=== PATIENT | female | born 1935 | race African-American/Black ===

== ENCOUNTER 2017-01-18 21:49 | Inpatient (IN) | payer MEDICAID, MEDICARE ==
[2017-01-18] MEDS ORDERED: VASELINE LIP THERAPY TP PRN (22:36)
[2017-01-18] MEDS ORDERED: NACL 0.9% 1000 ML 1,000 ML ONE (22:44)
[2017-01-18] MEDS ORDERED: NACL 0.9% 1000 ML 1,000 ML IV ONE ×2 (22:50→23:34)
[2017-01-18] MEDS ORDERED: ATIVAN 100 MG in NACL 0.9% 50 ML, VIAFLEX EMPTY CONTAINER 0 ML IV SCH (23:00)
--- NOTE | 2017-01-18 23:03 | Emergency Department Report ---
ED General Adult HPI - General Chief complaint: Dyspnea/Respdistress Stated complaint: SWATHI Time Seen by Provider: 01/18/17 22:36 Source: EMS Mode of arrival: Stretcher Limitations: Language Barrier, Altered Mental Status, Physical Limitation - History of Present Illness Initial comments: Patient is an 81-year-old female pmhx of GERD and HTN who presents with agonal breathing. Patient was at home when she wasn't responding to family. Patient' s O2 sat is 75% on 100% of FiO2 on CPAP. Further history is limited due to the acuity of patient's condition. - Related Data Previous Rx's Medication Instructions Recorded Last Taken Type Acetaminophen [Acetaminophen TAB] 650 mg PO Q4H PRN #60 tablet 01/03/17 Unknown Rx Clindamycin [Clindamycin CAP] 300 mg PO TID #20 capsule 01/03/17 Unknown Rx Levofloxacin [Levaquin TAB] 750 mg PO Q24HR #7 tablet 01/03/17 Unknown Rx cloNIDine [Catapres] 0.2 mg PO BID #60 tablet 01/03/17 Unknown Rx oxyCODONE /ACETAMINOPHEN [Percocet 1 tab PO Q6H PRN #30 tablet 01/03/17 Unknown Rx 5/325 mg] Allergies Allergy/AdvReac Type Severity Reaction Status Date / Time No Known Allergies Allergy Verified 07/16/15 13:15 ED Review of Systems ROS: Stated complaint: SWATHI Other details as noted in HPI Comment: Unobtainable due to pts medical conditions (due to acuity of patient' s condition.) ED Past Medical Hx - Past Medical History Hx Hypertension: Yes Hx GERD: Yes Hx Psychiatric Treatment: Yes (depression) Hx HIV: No - Surgical History Additional Surgical History: unknown - Social History Smoking Status: Unknown if ever smoked - Medications Home Medications: Home Medications Medication Instructions Recorded Confirmed Last Taken Type Acetaminophen [Acetaminophen TAB] 650 mg PO Q4H PRN #60 tablet 01/03/17 Unknown Rx Clindamycin [Clindamycin CAP] 300 mg PO TID #20 capsule 01/03/17 01/18/17 Unknown Rx Levofloxacin [Levaquin TAB] 750 mg PO Q24HR #7 tablet 01/03/17 01/18/17 Unknown Rx cloNIDine [Catapres] 0.2 mg PO BID #60 tablet 01/03/17 01/18/17 Unknown Rx oxyCODONE /ACETAMINOPHEN [Percocet 1 tab PO Q6H PRN #30 tablet 01/03/17 Unknown Rx 5/325 mg] ED Physical Exam - General Limitations: Language Barrier, Altered Mental Status, Physical Limitation General appearance: obtunded, cachectic - Head Head exam: Present: atraumatic - Respiratory Respiratory exam: Present: other (crackles ) - Cardiovascular Cardiovascular Exam: Present: tachycardia - GI/Abdominal GI/Abdominal exam: Present: soft ED Course Vital Signs 01/18/17 01/18/17 01/18/17 22:06 22:11 22:15 Temperature 97.4 F L Pulse Rate 131 H 131 H 127 H Respiratory 51 H 52 H 40 H Rate Blood Pressure 153/91 153/85 Blood Pressure 153/91 [Left] O2 Sat by Pulse 74 L 74 L 77 L Oximetry 01/18/17 01/18/17 01/18/17 22:44 22:45 23:00 Temperature Pulse Rate 132 H 130 H 94 H Respiratory 20 20 20 Rate Blood Pressure 86/65 71/50 Blood Pressure [Left] O2 Sat by Pulse 97 97 100 Oximetry 01/18/17 01/18/17 01/18/17 23:15 23:30 23:45 Temperature Pulse Rate 100 H 110 H 119 H Respiratory 20 20 20 Rate Blood Pressure 218/124 164/114 103/78 Blood Pressure [Left] O2 Sat by Pulse 100 100 100 Oximetry 01/18/17 01/19/17 23:50 00:00 Temperature Pulse Rate 122 H 119 H Respiratory 20 Rate Blood Pressure 103/78 91/69 Blood Pressure [Left] O2 Sat by Pulse 100 100 Oximetry - Intubation Time Out Performed: Yes Sedative: Etomidate Mg Given: 10 Paralytic: Rocuronium Mg Given: 60 Laryngoscope: fiberoptic video scope Size: 4 ET Tube Size: 7.5 Tube Secured Depth (cm): 24 Tube Secured Location: lips Tube Placement Confirmation: visualized tube passing t, equal breath sounds bilat, no breath sounds over epi Patient Tolerated Procedure: no complications Intubation Complications: none ED Medical Decision Making - Lab Data Result diagrams: 01/18/17 23:40 01/18/17 23:40 Lab Results 01/18/17 01/18/17 01/19/17 Range/Units 23:40 23:40 00:29 WBC 22.9 H (4.5-11.0) K/mm3 RBC 3.49 L (3.65-5.03) M/mm3 Hgb 10.4 (10.1-14.3) gm/dl Hct 32.3 (30.3-42.9) % MCV 93 (79-97) fl MCH 30 (28-32) pg MCHC 32 (30-34) % RDW 14.6 (13.2-15.2) % Plt Count 520 H (140-440) K/mm3 Seg Neutrophils % Corporate Strategist POC ABG pH 7.485 H (7.35-7.45) POC ABG pCO2 40.7 (35-45) POC ABG pO2 248 H (80-105) POC ABG HCO3 30.7 POC ABG Total CO2 32 POC ABG O2 Sat 100 POC ABG Base Excess 7 FiO2 100 % Sodium 155 H (137-145) mmol/L Potassium 2.7 L* (3.6-5.0) mmol/L Chloride 106.1 (98-107) mmol/L Carbon Dioxide 29 (22-30) mmol/L Anion Gap 23 mmol/L BUN 37 H (7-17) mg/dL Creatinine 0.8 (0.7-1.2) mg/dL Estimated GFR > 60 ml/min BUN/Creatinine Ratio 46.25 % Glucose 167 H (65-100) mg/dL Calcium 9.1 (8.4-10.2) mg/dL Troponin T 0.075 H (0.00-0.029) ng/mL - EKG Data -: EKG Interpreted by [facility] - EKG Data 01/19/17 01:18 EKG shows sinus tachycardia right atrium enlargement and LVH. Nonspecific T wave. - Radiology Data Radiology results: report reviewed Chest x-ray: Shows ET tube above the maycol - Medical Decision Making Medical diagnosis: Pneumonia Differential medical diagnosis: Sepsis, non-STEMI, hypokalemia, COPD We'll get CBC, CMP, lactic acid, blood cultures, IV antibiotics, chest x-ray, 30 mL per kilo fluid bolus, troponin, EKG Patient has respiratory failure patient will require admission to the ICU due to patient's life-threatening medical condition. Critical Care Time: Yes (40) Critical care time in (mins) excluding proc time.: 40 Critical care attestation.: If time is entered above; I have spent that time in minutes in the direct care of this critically ill patient, excluding procedure time. Critical Care Time: Critical care time spent at patient's bedside 30 minutes Critical care time spent with patient's family and 0 minutes Critical care time spent reviewing laboratory findings 5 minutes Local care times reviewing old laboratory records 5 minutes ED Disposition Clinical Impression: Respiratory failure requiring intubation, Parkinson disease, Hypokalemia Sepsis Qualifiers: Sepsis type: sepsis due to unspecified organism Qualified Code(s): A41.9 - Sepsis, unspecified organism Disposition: OP ADMIT IP TO THIS HOSP Is pt being admited?: Yes Does the pt Need Aspirin: No Condition: Stable Referrals: PRIMARY CARE, [Primary Care Provider] - 3-5 Days
[2017-01-18] MEDS: fentaNYL DRIP Premix 2,000 MCG/100 ML BAG IV SCH (23:34)
[2017-01-18 23:55] LABS: Hematocrit 32.3 % (30.3-42.9); Hemoglobin 10.4 gm/dl (10.1-14.3); Mean Corpuscular HGB Conc 32 % (30-34); Mean Corpuscular Hemoglobin 30 pg (28-32); Mean Corpuscular Volume 93 fl (79-97); Platelet Count 520 K/mm3 (140-440); Red Blood Count 3.49 M/mm3 (3.65-5.03); Red Cell Distribution Width 14.6 % (13.2-15.2)
[2017-01-18 23:57] LABS: White Blood Count 22.9 K/mm3 (4.5-11.0)
[2017-01-19] MEDS ORDERED: NACL 0.9% 1000 ML IV ONE
[2017-01-19 00:17] LABS: Anion Gap 23 mmol/L; BUN/Creatinine Ratio 46.25; Blood Urea Nitrogen 37 mg/dL (7-17); Calcium 9.1 mg/dL (8.4-10.2); Carbon Dioxide 29 mmol/L (22-30); Chloride 106.1 mmol/L (98-107); Glucose 167 mg/dL (65-100); Sodium 155 mmol/L (137-145)
[2017-01-19 00:24] LABS: Potassium 2.7 mmol/L (3.6-5.0)
[2017-01-19] MEDS ORDERED: VANCOMYCIN VIAL IV ONE (00:25)
[2017-01-19 00:37] LABS: ISTAT Base Excess 7; ISTAT HCO3 30.7; ISTAT PCO2 40.7 (35-45); ISTAT PH 7.485 (7.35-7.45); ISTAT PO2 248 (80-105); ISTAT SO2 100; ISTAT TCO2 32
[2017-01-19] MEDS: KCL 10MEQ/100ML 10 MEQ/100 ML BAG IV SCH ×3 (00:44→03:55)
[2017-01-19] MEDS ORDERED: VANCOMYCIN PHARMACY TO DOSE IV SCH ×2 (01:00→03:00)
[2017-01-19] MEDS ORDERED: ZOSYN/NS 3.375GM/50ML 3.375 GM/50 ML BAG IV ONE (01:25)
[2017-01-19] MEDS ORDERED: VANCOMYCIN/NS 1 GM/250 ML 1 GM/250 ML BAG IV ONE (02:00)
[2017-01-19 02:03] LABS: Blastocytes % (Manual) 0 %
[2017-01-19 02:04] LABS: Eosinophils % (Manual) 0 % (0.0-4.3); Total Cells Counted Percent 0
[2017-01-19 02:05] LABS: Diff Status Complete; Macrocytosis Few; Platelet Estimate Appears Increased
[2017-01-19] MEDS ORDERED: TYLENOL PO PRN (02:25)
[2017-01-19] MEDS ORDERED: TYLENOL PR PRN (02:25)
[2017-01-19] MEDS ORDERED: ZOFRAN IV PRN (02:25)
--- NOTE | 2017-01-19 02:30 | History and Physical Report ---
History of Present Illness Date of examination: 01/19/17 History of present illness: 81-year-old woman history of hypertension, GERD, depression was brought to the emergency room patient was not responding appropriately. The patient was found to have agonal respirations and was intubated. A review of systems unobtainable , unable to reach family irritable charts reviewed PAST MEDICAL HISTORY: hyperrtension, GERD, depressio PAST SURGICAL HISTORY: Unknown FAMILY HISTORY:Unknown SOCIAL HISTORY:Unknown Medications and Allergies Allergies Allergy/AdvReac Type Severity Reaction Status Date / Time No Known Allergies Allergy Verified 07/16/15 13:15 Home Medications Medication Instructions Recorded Confirmed Last Taken Type Acetaminophen [Acetaminophen TAB] 650 mg PO Q4H PRN #60 tablet 01/03/17 Unknown Rx Clindamycin [Clindamycin CAP] 300 mg PO TID #20 capsule 01/03/17 01/18/17 Unknown Rx Levofloxacin [Levaquin TAB] 750 mg PO Q24HR #7 tablet 01/03/17 01/18/17 Unknown Rx cloNIDine [Catapres] 0.2 mg PO BID #60 tablet 01/03/17 01/18/17 Unknown Rx oxyCODONE /ACETAMINOPHEN [Percocet 1 tab PO Q6H PRN #30 tablet 01/03/17 Unknown Rx 5/325 mg] Active Meds: Active Medications Hydrophilic Ointment (Vaseline Lip Therapy) 1 applic TP Q2HR PRN PRN Reason: Dry Lips Fentanyl Citrate (Fentanyl Drip Premix) 2,000 mcg in 100 mls @ 2.495 mls/hr IV TITR KEELY; 1 MCG/KG/HR PRN Reason: Protocol Last Titration: 01/19/17 01:18 Dose: 2 mcg/kg/hr, 4.99 mls/hr Lorazepam 100 mg/ Sodium Chloride/ Miscellaneous Information 100 mls @ 1 mls/ hr IV TITR KEELY; 1 MG/HR PRN Reason: Protocol Last Admin: 01/18/17 23:34 Dose: 1 mg/hr, 1 mls/hr Sodium Chloride (Nacl 0.9% 1000 Ml) 1,000 mls @ 75 mls/hr IV ONCE ONE Stop: 01/19/17 12:53 Last Admin: 01/18/17 23:34 Dose: 75 mls/hr Potassium Chloride (Kcl 10meq/100ml) 10 meq in 100 mls @ 100 mls/hr IV Q1H [facility] Stop: 01/19/17 03:59 Last Admin: 01/19/17 02:25 Dose: 100 mls/hr Piperacillin Sod/Tazobactam Sod (Zosyn/Ns 3.375gm/50ml) 3.375 gm in 50 mls @ 100 mls/hr IV Q6HR [facility] Last Admin: 01/19/17 01:00 Dose: 100 mls/hr Vancomycin HCl (Vancomycin/Ns 1 Gm/250 Ml) 1 gm in 250 mls @ 166.667 mls/hr IV ONCE ONE Stop: 01/19/17 03:29 Last Admin: 01/19/17 01:38 Dose: 166.667 mls/hr Vancomycin HCl 750 mg/ Sodium (Chloride) 257.5 mls @ 166.667 mls/hr IV Q24H [facility] Multi-Ingred Cream/Lotion/Oil/Oint (Artificial Tears Ophth Oint) 1 applic OU Q4HR PRN PRN Reason: Dry Eye(s) Vancomycin HCl (Vancomycin Pharmacy To Dose) 1 each IV PKCONSULT KEELY PRN Reason: Protocol Exam - Physical Exam Narrative exam: Gen. appearance: Patient lying in bed in no acute distress, intubated HEENT: Normocephalic/atraumatic, pupils equal round reactive to light, unable to do extraocular movement, no scleral icterus, no JVD or thyromegaly or nodule , neck is supple, mucous membrane moist, unable to examine oral cavity Heart: S1-S2, regular rate and rhythm Lungs: Clear to auscultation bilateral breathing comfortable Abdomen: Positive bowel sounds, nontender, nondistended, no organomegaly Extremities: No edema, cyanosis, clubbing Neuro:: Sedated Skin: No rash, nodules, warm dry - Constitutional Vitals: Temp Pulse Resp BP Pulse Ox 97.4 F L 99 H 18 123/74 93 01/18/17 22:11 01/19/17 01:45 01/19/17 01:45 01/19/17 01:45 01/19/17 01:45 Results - Labs CBC & Chem 7: 01/22/17 05:05 01/22/17 05:05 Labs: Abnormal lab results 01/18/17 01/18/17 01/19/17 Range/Units 23:40 23:40 00:29 WBC 22.9 H (4.5-11.0) K/mm3 RBC 3.49 L (3.65-5.03) M/mm3 Plt Count 520 H (140-440) K/mm3 Seg Neuts % (Manual) 79.0 H (40.0-70.0) % Lymphocytes % (Manual) 3.0 L (13.4-35.0) % Seg Neutrophils # Man 18.1 H (1.8-7.7) K/mm3 Lymphocytes # (Manual) 0.7 L (1.2-5.4) K/mm3 POC ABG pH 7.485 H (7.35-7.45) POC ABG pO2 248 H (80-105) Sodium 155 H (137-145) mmol/L Potassium 2.7 L* (3.6-5.0) mmol/L BUN 37 H (7-17) mg/dL Glucose 167 H (65-100) mg/dL Lactic Acid (0.7-2.0) mmol/L Troponin T 0.075 H (0.00-0.029) ng/mL 01/19/17 Range/Units 00:44 WBC (4.5-11.0) K/mm3 RBC (3.65-5.03) M/mm3 Plt Count (140-440) K/mm3 Seg Neuts % (Manual) (40.0-70.0) % Lymphocytes % (Manual) (13.4-35.0) % Seg Neutrophils # Man (1.8-7.7) K/mm3 Lymphocytes # (Manual) (1.2-5.4) K/mm3 POC ABG pH (7.35-7.45) POC ABG pO2 (80-105) Sodium (137-145) mmol/L Potassium (3.6-5.0) mmol/L BUN (7-17) mg/dL Glucose (65-100) mg/dL Lactic Acid 7.90 H* (0.7-2.0) mmol/L Troponin T (0.00-0.029) ng/mL - Imaging and Cardiology EKG: image reviewed Chest x-ray: image reviewed Assessment and Plan Assessment Acute respiratory failure Sepsis HCAP Hyponatremia Elevated cardiac enzymes Hypokalemia Plan Admit to medicine Continue sedation Start IV vancomycin, Zosyn Start IV fluid, monitor sodium level Replete potassium, check cardiac enzymes, echo Consult critical care, DVT prophylaxis Addendum The patient has become more hypoxic, status post IV fluid Increase FiO2 to 100. Spoke with son, patient is full code Blood pressures dropped to the 70s, I have obtained consent for central line Will start blevophed, hold sedation for now
[2017-01-19 02:44] LABS: Cholesterol 201 mg/dL (50-199); HDL Cholesterol 46 mg/dL (40-59); LDL Cholesterol,Direct 121 mg/dL (50-130); Triglycerides 173 mg/dL (2-149)
[2017-01-19] MEDS ORDERED: VANCOMYCIN VIAL IV SCH (03:00)
[2017-01-19] MEDS ORDERED: K-DUR PO ONE (03:35)
[2017-01-19 05:05] LABS: Bilirubin,Urine NEG (Negative); Blood,Urine NEG (Negative); Ketones,Urine NEG (Negative); Leukocyte Esterase,Urine NEG (Negative); Mucus,Urine 1+ /HPF; Nitrite,Urine NEG (Negative); Protein,Urine <15 mg/dL mg/dL (Negative); Urobilinogen,Urine < 2.0 mg/dL (<2.0)
[2017-01-19 05:34] LABS: ISTAT Base Excess 0; ISTAT HCO3 24.8; ISTAT PCO2 42.6 (35-45); ISTAT PH 7.373 (7.35-7.45); ISTAT PO2 57 (80-105); ISTAT SO2 88; ISTAT TCO2 26
--- NOTE | 2017-01-19 05:35 | Event Note ---
ED Saba. central line note Requested by hospitalist Dr. Maribel Sewell to place a central line so that vasopressors may be initiated Central line note Consent was obtained by hospitalist Location: Right femoral The site was prepped and draped in a sterile fashion Site was anesthetized with lidocaine 1% approximately 3 mL Landmarks identified and needle introduced until return of dark nonpulsatile blood Blood was obtained on first attempt Guidewire introduced using Seldinger technique and triple lumen catheter placed over guidewire There was blood return from all 3 ports Catheter was secured to patient by adhesive The patient tolerated procedure well There were no complications
[2017-01-19] MEDS ORDERED: LEVOPHED DRIP 4 MG/NS 250 ML 4 MG/250 ML BAG IV SCH (06:00)
[2017-01-19] MEDS ORDERED: ZOSYN/NS 3.375GM/50ML 3.375 GM/50 ML BAG IV SCH (06:00)
[2017-01-19] MEDS ORDERED: D5W 1,000 ML IV SCH (06:00)
[2017-01-19] MEDS: D5W 1,000 ML IV SCH ×2 (06:33→22:23)
[2017-01-19 07:03] LABS: Anion Gap 15 mmol/L; BUN/Creatinine Ratio 48.57; Blood Urea Nitrogen 34 mg/dL (7-17); Calcium 7.9 mg/dL (8.4-10.2); Carbon Dioxide 28 mmol/L (22-30); Chloride 116.6 mmol/L (98-107); Glucose 124 mg/dL (65-100); Potassium 3.5 mmol/L (3.6-5.0); Sodium 156 mmol/L (137-145)
[2017-01-19 07:16] LABS: Creatine Kinase MB 3.4 ng/mL (0.0-4.0)
--- NOTE | 2017-01-19 07:45 | XRay Report ---
Single view chest: Compared to 01/05/17. History: Difficulty breathing. Findings: Normal cardiomediastinal silhouette. Trachea is midline. Tip of the endotracheal tube is in the right mainstem bronchus just distal to the maycol. Emphysematous changes bilaterally with bilateral lower lobe infiltrates minimal growth of the right side. No evidence of pleural effusion or pneumothorax. Impression: The endotracheal tube should be withdrawn approximately 4 cm. Additional findings as detailed above.
--- NOTE | 2017-01-19 07:46 | XRay Report ---
Single view chest: Compared to 01/18/17 obtained at 10:45 PM. History: Followup of respiratory failure. Findings: No significant interval change compared to previous study. Again endotracheal tube is noted in the proximal mainstem bronchus. Should be withdrawn approximately 4 cm. Impression: Findings as detailed above.
[2017-01-19] MEDS ORDERED: ZOSYN/NS 4.5GM/100ML 4.5 GM/100 ML VIAL IV SCH (08:00)
[2017-01-19 08:12] LABS: Anion Gap 14 mmol/L; BUN/Creatinine Ratio 47.14; Blood Urea Nitrogen 33 mg/dL (7-17); Calcium 7.8 mg/dL (8.4-10.2); Carbon Dioxide 29 mmol/L (22-30); Chloride 119.5 mmol/L (98-107); Glucose 118 mg/dL (65-100); Potassium 3.5 mmol/L (3.6-5.0); Sodium 159 mmol/L (137-145)
--- NOTE | 2017-01-19 08:23 | Event Note ---
Date: 01/19/17 Patient was admitted this morning acute respiratory failure, requiring intubation, hypotension, elevated cardiac enzymes Hypernatremia, anemia.Patient awaiting ICU bed assignment Medical records reviewed, agree with the current management Patient is critically ill, with very poor prognosis with multiple medical problems, Upon evaluation; Elderly frail patient is orally intubated on ventilatory support and sedated In mild distress Vital signs reviewed Physical examination; Neck; supple no JVD or lymphadenopathy ENT; Ht tube and Dobbhoff in place Pulmonary; bilateral air entry reduced occasional coarse breath sounds present CVS; S1-S2 regular no murmur Abdomen; soft nontender bowel sounds are present no organomegaly Lower extremities; no edema feet, no calf asymmetry or calf tenderness FRAME BUILDER; intubated and sedated Psych; intubated and sedated Skin; chronic age-related changes Musculoskeletal; no deformities Assessment and plan: --Acute respiratory failure; requiring intubation Continue ventilatory support, nebulizers, pulmonary consultation, supportive care --Sepsis; probably secondary to HCAP IV antibiotics, follow cultures --Leukocytosis; secondary to sepsis --Hypokalemia; replace per protocol and monitor levels --Hypotension/septic shock; IV hydration, pressors, antibiotics, follow cultures, consider ID evaluation if needed --Hypernatremia D5W, free water flushes, closely monitor electrolytes Consisted nephrology evaluation if needed --Elevated cardiac enzymes, rule out non-ST elevation OK Serial cardiac enzymes, aspirin, no beta blockers or Navid inhibitors secondary to hypotension, cardiology evaluation if needed --DVT prophylaxis; SCDs CODE STATUS; DO NOT RESUSCITATE Patient is critically ill with poor prognosis son is aware We will discuss options of hospice and comfort care with the patient's son I answered all his questions,he requested to continue current management and DO NOT RESUSCITATE status if patient has cardiac arrest.
[2017-01-19] MEDS: LOVENOX SUB-Q SCH (09:57)
[2017-01-19 10:38] LABS: Creatine Kinase MB 3.1 ng/mL (0.0-4.0)
[2017-01-19 11:48] LABS: Anion Gap 17 mmol/L; Blood Urea Nitrogen 36 mg/dL (7-17); Calcium 7.6 mg/dL (8.4-10.2); Carbon Dioxide 27 mmol/L (22-30); Chloride 120.8 mmol/L (98-107); Glucose 119 mg/dL (65-100); Potassium 3.5 mmol/L (3.6-5.0)
[2017-01-19 12:10] LABS: Sodium 161 mmol/L (137-145)
--- NOTE | 2017-01-19 12:39 | Consultation ---
History of Present Illness Consult date: 01/19/17 Requesting physician: HAILEE ALVES Reason for consult: hypoxemia History of present illness: 81 y/o female, recently discharged from [facility] several days ago with failure to thrive and pneumonia, readmitted with change in mental status and inability to protect airway with hypoxemia. From reviewing the old chart, patient's overall clinical health has been declining over this past year but family was not ready to make the patient hospice. She is currently intubated, but now she is an AND. Medications and Allergies Allergies Allergy/AdvReac Type Severity Reaction Status Date / Time No Known Allergies Allergy Verified 07/16/15 13:15 Home Medications Medication Instructions Recorded Confirmed Last Taken Type Acetaminophen [Acetaminophen TAB] 650 mg PO Q4H PRN #60 tablet 01/03/17 Unknown Rx Clindamycin [Clindamycin CAP] 300 mg PO TID #20 capsule 01/03/17 01/18/17 Unknown Rx Levofloxacin [Levaquin TAB] 750 mg PO Q24HR #7 tablet 01/03/17 01/18/17 Unknown Rx cloNIDine [Catapres] 0.2 mg PO BID #60 tablet 01/03/17 01/18/17 Unknown Rx oxyCODONE /ACETAMINOPHEN [Percocet 1 tab PO Q6H PRN #30 tablet 01/03/17 Unknown Rx 5/325 mg] Active Meds: Active Medications Acetaminophen (Tylenol) 650 mg PO Q4H PRN PRN Reason: Pain MILD(1-3)/Fever >100.5/SALMON Acetaminophen (Tylenol) 650 mg CO Q4H PRN PRN Reason: Pain MILD(1-3)/Fever >100.5/SALMON Enoxaparin Sodium (Lovenox) 30 mg SUB-Q QDAY KEELY Last Admin: 01/19/17 09:57 Dose: 30 mg Hydrophilic Ointment (Vaseline Lip Therapy) 1 applic TP Q2HR PRN PRN Reason: Dry Lips Fentanyl Citrate (Fentanyl Drip Premix) 2,000 mcg in 100 mls @ 2.495 mls/hr IV TITR KEELY; 1 MCG/KG/HR PRN Reason: Protocol Last Titration: 01/19/17 04:46 Dose: 1 mcg/kg/hr, 2.495 mls/hr Lorazepam 100 mg/ Sodium Chloride/ Miscellaneous Information 100 mls @ 1 mls/ hr IV TITR KEELY; 1 MG/HR PRN Reason: Protocol Last Admin: 01/18/17 23:34 Dose: 1 mg/hr, 1 mls/hr Sodium Chloride (Nacl 0.9% 1000 Ml) 1,000 mls @ 75 mls/hr IV ONCE ONE Stop: 01/19/17 12:53 Last Admin: 01/18/17 23:34 Dose: 75 mls/hr Vancomycin HCl 750 mg/ Sodium (Chloride) 257.5 mls @ 166.667 mls/hr IV Q24H KEELY Norepinephrine (Levophed Drip 4 Mg/Ns 250 Ml) 4 mg in 250 mls @ 7.5 mls/hr IV TITR KEELY; 2 MCG/MIN PRN Reason: Protocol Dextrose (D5w) 1,000 mls @ 125 mls/hr IV DIRECT KEELY Last Admin: 01/19/17 06:33 Dose: 75 mls/hr Piperacillin Sod/Tazobactam Sod (Zosyn/Ns 4.5gm/100ml) 4.5 gm in 100 mls @ 200 mls/hr IV Q8HR KEELY PRN Reason: Protocol Multi-Ingred Cream/Lotion/Oil/Oint (Artificial Tears Ophth Oint) 1 applic OU Q4HR PRN PRN Reason: Dry Eye(s) Ondansetron HCl (Zofran) 4 mg IV Q8H PRN PRN Reason: N/V unrelieved by Juniorlan Vancomycin HCl (Vancomycin Pharmacy To Dose) 1 each IV PKCONSULT KEELY PRN Reason: Protocol Physical Examination Vital signs: Vital Signs Pulse Resp Pulse Ox 131 H 51 H 74 L 01/18/17 22:06 01/18/17 22:06 01/18/17 22:06 Results - Laboratory Findings CBC and BMP: 01/21/17 04:00 01/21/17 04:00 ABG POC ABG pH 7.373 (7.35-7.45) 01/19/17 04:48 POC ABG pCO2 42.6 (35-45) 01/19/17 04:48 POC ABG pO2 57 (80-105) L 01/19/17 04:48 POC ABG HCO3 24.8 01/19/17 04:48 POC ABG Total CO2 26 01/19/17 04:48 POC ABG O2 Sat 88 01/19/17 04:48 Abnormal lab findings: Abnormal Labs 01/19/17 01/19/17 01/19/17 04:48 06:32 06:32 POC ABG pO2 57 L Sodium Potassium Chloride BUN Glucose Lactic Acid Calcium CK-MB (CK-2) Rel Index 8.2 H Troponin T 0.126 H* D 01/19/17 01/19/17 01/19/17 06:32 06:32 07:41 POC ABG pO2 Sodium 156 H 159 H Potassium 3.5 L D 3.5 L Chloride 116.6 H 119.5 H BUN 34 H 33 H Glucose 124 H 118 H Lactic Acid 4.00 H* Calcium 7.9 L 7.8 L CK-MB (CK-2) Rel Index Troponin T 01/19/17 01/19/17 01/19/17 09:55 09:55 11:30 POC ABG pO2 Sodium 161 H* Potassium 3.5 L Chloride 120.8 H BUN 36 H Glucose 119 H Lactic Acid Calcium 7.6 L CK-MB (CK-2) Rel Index 7.3 H Troponin T 0.163 H* D Assessment and Plan 81 y/o female with mulitiple comorbidities admitted with acute respiratory failure and failure to thrive and NSTEMi 1. Continue vent support 2. Agree with broad spec abx therapy given patient was just discharged from the hospital earlier this month 3. Correct electrolyte imbalances 4. overall prognosis is poor, would suggest hospice which primary has already spoken to family about. Will continue to supportive care. CCT 31 minutes
[2017-01-19 12:57] LABS: Anion Gap 16 mmol/L; Blood Urea Nitrogen 34 mg/dL (7-17); Calcium 7.7 mg/dL (8.4-10.2); Carbon Dioxide 26 mmol/L (22-30); Chloride 119.4 mmol/L (98-107); Glucose 127 mg/dL (65-100); Potassium 3.4 mmol/L (3.6-5.0); Sodium 158 mmol/L (137-145)
[2017-01-19] MEDS ORDERED: KCL 20MEQ/100ML 20 MEQ/100 ML BAG IV ONE (14:30)
[2017-01-19] MEDS: ZOSYN/NS 4.5GM/100ML 4.5 GM/100 ML VIAL IV SCH (16:20)
[2017-01-19] MEDS: ARTIFICIAL TEARS OPHTH OINT OU PRN (17:17)
--- NOTE | 2017-01-19 17:19 | Consultation ---
History of Present Illness - Reason for Consult Consult date: 01/19/17 hypokalemia, other (Hypernatremia) - History of Present Illness The patient is a 81-year-old female with medical history significant for Hypertension, GERD, Depression was brought to the ER with decreased responsiveness. Patient was not able to provide any history at this time and there was no family member available at the bedside. She was recently treated at [facility] for failure to thrive and pneumonia. The patient was found to have agonal respirations and was intubated. Patient is hypotensive and Levophed was ordered. She has multiple laboratory abnormalities including leukocytosis, hypernatremia, hypokalemia, Lactic acidosis, azotemia and elevated troponin. Creatinine is 0.8. Past History Past Medical History: GERD, hypertension Medications and Allergies Allergies Allergy/AdvReac Type Severity Reaction Status Date / Time No Known Allergies Allergy Verified 07/16/15 13:15 Home Medications Medication Instructions Recorded Confirmed Last Taken Type Acetaminophen [Acetaminophen TAB] 650 mg PO Q4H PRN #60 tablet 01/03/17 Unknown Rx Clindamycin [Clindamycin CAP] 300 mg PO TID #20 capsule 01/03/17 01/18/17 Unknown Rx Levofloxacin [Levaquin TAB] 750 mg PO Q24HR #7 tablet 01/03/17 01/18/17 Unknown Rx cloNIDine [Catapres] 0.2 mg PO BID #60 tablet 01/03/17 01/18/17 Unknown Rx oxyCODONE /ACETAMINOPHEN [Percocet 1 tab PO Q6H PRN #30 tablet 01/03/17 Unknown Rx 5/325 mg] Active Meds: Active Medications Acetaminophen (Tylenol) 650 mg PO Q4H PRN PRN Reason: Pain MILD(1-3)/Fever >100.5/SALMON Acetaminophen (Tylenol) 650 mg OR Q4H PRN PRN Reason: Pain MILD(1-3)/Fever >100.5/SALMON Last Admin: 01/19/17 16:26 Dose: 650 mg Enoxaparin Sodium (Lovenox) 30 mg SUB-Q QDAY KEELY Last Admin: 01/19/17 09:57 Dose: 30 mg Hydrophilic Ointment (Vaseline Lip Therapy) 1 applic TP Q2HR PRN PRN Reason: Dry Lips Fentanyl Citrate (Fentanyl Drip Premix) 2,000 mcg in 100 mls @ 2.495 mls/hr IV TITR KEELY; 1 MCG/KG/HR PRN Reason: Protocol Last Titration: 01/19/17 12:36 Dose: 1 mcg/kg/hr, 2.495 mls/hr Lorazepam 100 mg/ Sodium Chloride/ Miscellaneous Information 100 mls @ 1 mls/ hr IV TITR KEELY; 1 MG/HR PRN Reason: Protocol Last Admin: 01/18/17 23:34 Dose: 1 mg/hr, 1 mls/hr Vancomycin HCl 750 mg/ Sodium (Chloride) 257.5 mls @ 166.667 mls/hr IV Q24H KEELY Norepinephrine (Levophed Drip 4 Mg/Ns 250 Ml) 4 mg in 250 mls @ 7.5 mls/hr IV TITR KEELY; 2 MCG/MIN PRN Reason: Protocol Dextrose (D5w) 1,000 mls @ 125 mls/hr IV DIRECT KEELY Last Admin: 01/19/17 06:33 Dose: 75 mls/hr Piperacillin Sod/Tazobactam Sod (Zosyn/Ns 4.5gm/100ml) 4.5 gm in 100 mls @ 200 mls/hr IV Q8HR KEELY PRN Reason: Protocol Last Admin: 01/19/17 16:20 Dose: 200 mls/hr Multi-Ingred Cream/Lotion/Oil/Oint (Artificial Tears Ophth Oint) 1 applic OU Q4HR PRN PRN Reason: Dry Eye(s) Ondansetron HCl (Zofran) 4 mg IV Q8H PRN PRN Reason: N/V unrelieved by Hemanth Vancomycin HCl (Vancomycin Pharmacy To Dose) 1 each IV PKCONSULT KEELY PRN Reason: Protocol Review of Systems ROS unobtainable: due to mental status Exam - Vital Signs Vital signs: Vital Signs Pulse Resp Pulse Ox 131 H 51 H 74 L 01/18/17 22:06 01/18/17 22:06 01/18/17 22:06 - General Appearance General appearance: well-developed, appears stated age, sedated on ventilator, intubated, frail EENT: ATNC, other (left cornea is hazy) Neck: Present: neck supple, trachea midline Respiratory: Other (coarse breath sounds) Heart: regular, S1S2, no murmurs Gastrointestinal: Present: normoactive bowel sounds. Absent: tenderness, distended Integumentary: no rash Neurologic: other (sedated) Musculoskeletal: Present: other (no edema) Results - Lab Results 01/18/17 23:40 01/19/17 12:05 Most recent lab results Calcium 7.7 mg/dL (8.4-10.2) L 01/19/17 12:05 Assessment and Plan - Patient Problems (1) Azotemia Current Visit: Yes Status: Acute Plan to address problem: Continue IV fluids. (2) Hypernatremia Current Visit: Yes Status: Acute Plan to address problem: Continue IV D5W. Monitor Sodium levels. (3) Hypokalemia Current Visit: Yes Status: Acute Plan to address problem: Replete K. (4) Respiratory failure requiring intubation Current Visit: Yes Status: Acute (5) Sepsis Current Visit: Yes Status: Acute Qualifiers: Sepsis type: sepsis due to unspecified organism Qualified Code(s): A41.9 - Sepsis, unspecified organism
--- NOTE | 2017-01-19 17:53 | Consultation ---
History of Present Illness Consult date: 01/19/17 Consult reason: abnormal cardiac enzymes History of present illness: The patient is an 81-year-old woman who was brought to the emergency room with altered mental status. There are multiple severe laboratory and metabolic abnormalities including severe hypernatremia with sodium 161, and severe leukocytosis with a white count of 22,000. The patient was ultimately intubated and is currently in the emergency room, unresponsive on the vent. Cardiac consultation was requested for an isolated mild rise in troponin levels. On further review, more pertinent cardiac finding is an abnormal ECG. There was sinus tachycardia, with ischemic ST depression in the lateral precordial leads. Review of her records demonstrates that a year ago, she underwent noninvasive cardiac evaluation, a myocardial perfusion stress test was normal, an echocardiogram was normal left ventricular systolic function with ejection fraction reported at 55-60%. Chest x-ray shows no edema or evidence of heart failure. Due to advanced age, frailty and multiple comorbidities, the patient is on conservative medical management, and has a DO NOT RESUSCITATE status. Past History Past Medical History: hypertension Medications and Allergies Allergies Allergy/AdvReac Type Severity Reaction Status Date / Time No Known Allergies Allergy Verified 07/16/15 13:15 Home Medications Medication Instructions Recorded Confirmed Last Taken Type Acetaminophen [Acetaminophen TAB] 650 mg PO Q4H PRN #60 tablet 01/03/17 Unknown Rx Clindamycin [Clindamycin CAP] 300 mg PO TID #20 capsule 01/03/17 01/18/17 Unknown Rx Levofloxacin [Levaquin TAB] 750 mg PO Q24HR #7 tablet 01/03/17 01/18/17 Unknown Rx cloNIDine [Catapres] 0.2 mg PO BID #60 tablet 01/03/17 01/18/17 Unknown Rx oxyCODONE /ACETAMINOPHEN [Percocet 1 tab PO Q6H PRN #30 tablet 01/03/17 Unknown Rx 5/325 mg] Active Meds: Active Medications Acetaminophen (Tylenol) 650 mg PO Q4H PRN PRN Reason: Pain MILD(1-3)/Fever >100.5/SALOMN Acetaminophen (Tylenol) 650 mg [place] Q4H PRN PRN Reason: Pain MILD(1-3)/Fever >100.5/SALMON Last Admin: 01/19/17 16:26 Dose: 650 mg Enoxaparin Sodium (Lovenox) 30 mg SUB-Q QDAY KEELY Last Admin: 01/19/17 09:57 Dose: 30 mg Hydrophilic Ointment (Vaseline Lip Therapy) 1 applic TP Q2HR PRN PRN Reason: Dry Lips Fentanyl Citrate (Fentanyl Drip Premix) 2,000 mcg in 100 mls @ 2.495 mls/hr IV TITR KEELY; 1 MCG/KG/HR PRN Reason: Protocol Last Titration: 01/19/17 12:36 Dose: 1 mcg/kg/hr, 2.495 mls/hr Lorazepam 100 mg/ Sodium Chloride/ Miscellaneous Information 100 mls @ 1 mls/ hr IV TITR KEELY; 1 MG/HR PRN Reason: Protocol Last Admin: 01/18/17 23:34 Dose: 1 mg/hr, 1 mls/hr Vancomycin HCl 750 mg/ Sodium (Chloride) 257.5 mls @ 166.667 mls/hr IV Q24H KEELY Norepinephrine (Levophed Drip 4 Mg/Ns 250 Ml) 4 mg in 250 mls @ 7.5 mls/hr IV TITR KEELY; 2 MCG/MIN PRN Reason: Protocol Dextrose (D5w) 1,000 mls @ 125 mls/hr IV DIRECT KEELY Last Admin: 01/19/17 06:33 Dose: 75 mls/hr Piperacillin Sod/Tazobactam Sod (Zosyn/Ns 4.5gm/100ml) 4.5 gm in 100 mls @ 200 mls/hr IV Q8HR KEELY PRN Reason: Protocol Last Admin: 01/19/17 16:20 Dose: 200 mls/hr Multi-Ingred Cream/Lotion/Oil/Oint (Artificial Tears Ophth Oint) 1 applic OU Q4HR PRN PRN Reason: Dry Eye(s) Last Admin: 01/19/17 17:17 Dose: 1 applic Ondansetron HCl (Zofran) 4 mg IV Q8H PRN PRN Reason: N/V unrelieved by Hemanth Vancomycin HCl (Vancomycin Pharmacy To Dose) 1 each IV PKCONSULT KEELY PRN Reason: Protocol Review of Systems ROS unobtainable: due to endotracheal tube, due to mental status Physical Examination Vital Signs Pulse Resp Pulse Ox 131 H 51 H 74 L 01/18/17 22:06 01/18/17 22:06 01/18/17 22:06 General appearance: cachectic, other (unresponsive, on the vent) HEENT: Positive: PERRL Neck: Positive: neck supple Cardiac: Positive: Reg Rate and Rhythm Lungs: Positive: Decreased Breath Sounds Neuro: Positive: Other (unresponsive on the vent) Abdomen: Positive: Soft Female genitourinary: deferred Skin: Positive: Clear Extremities: Absent: edema Results 01/18/17 23:40 01/19/17 12:05 Cardiac Enzymes 01/19/17 01/19/17 Range/Units 06:32 09:55 CK-MB (CK-2) 3.4 3.1 (0.0-4.0) ng/mL Comprehensive Metabolic Panel 01/19/17 01/19/17 01/19/17 Range/Units 06:32 07:41 11:30 Sodium 156 H 159 H 161 H* (137-145) mmol/L Potassium 3.5 L D 3.5 L 3.5 L (3.6-5.0) mmol/L Chloride 116.6 H 119.5 H 120.8 H (98-107) mmol/L Carbon Dioxide 28 29 27 (22-30) mmol/L BUN 34 H 33 H 36 H (7-17) mg/dL Creatinine 0.7 0.7 0.8 (0.7-1.2) mg/dL Glucose 124 H 118 H 119 H (65-100) mg/dL Calcium 7.9 L 7.8 L 7.6 L (8.4-10.2) mg/dL 01/19/17 Range/Units 12:05 Sodium 158 H (137-145) mmol/L Potassium 3.4 L (3.6-5.0) mmol/L Chloride 119.4 H (98-107) mmol/L Carbon Dioxide 26 (22-30) mmol/L BUN 34 H (7-17) mg/dL Creatinine 0.8 (0.7-1.2) mg/dL Glucose 127 H (65-100) mg/dL Calcium 7.7 L (8.4-10.2) mg/dL EKG interpretations - Telemetry EKG Rhythm: Sinus Tachycardia (with ischemic ST depression in the lateral precordial leads) Assessment and Plan - Patient Problems (1) Respiratory failure requiring intubation Current Visit: Yes Status: Acute Plan to address problem: Patient presents with altered mental status, severe hyponatremia, sepsis and leukocytosis. She is currently intubated on mechanical ventilator for respiratory failure. Chest x-ray reveals no edema, no clinical or x-ray evidence of heart failure. (2) Abnormal ECG Current Visit: Yes Status: Acute Plan to address problem: Patient's ECG shows ischemic changes in the lateral precordial leads. Due to her advanced age, frailty and multiple comorbidities, she'll be a candidate only for conservative cardiac medical therapy. The patient's blood pressure is low at this time, BUT once blood pressure stabilizes, we will recommend empiric use of topical nitrates and oral beta blockers for management of underlying coronary artery disease.
[2017-01-19] MEDS: fentaNYL DRIP Premix 2,000 MCG/100 ML BAG IV SCH (19:05)
--- NOTE | 2017-01-19 20:41 | Progress Note ---
Assessment and Plan Assessment and plan: --Acute hypoxic respiratory failure; requiring intubation Continue ventilatory support, nebulizers, pulmonary consultation, supportive care --Sepsis due to possible HCAP IV antibiotics, follow cultures --Leukocytosis; secondary to sepsis --Hypokalemia; replace per protocol and monitor levels --Hypotension/septic shock; secondary to possible aspiration pneumonia IV hydration, pressors, antibiotics, follow cultures, consider ID evaluation if needed --Hypernatremia; secondary to dehydration and hypotension D5W, free water flushes, closely monitor electrolytes Consisted nephrology evaluation if needed --Elevated cardiac enzymes, rule out non-ST elevation [place] Serial cardiac enzymes, aspirin, no beta blockers or Navid inhibitors secondary to hypotension, cardiology evaluation if needed --DVT prophylaxis; SCDs CODE STATUS; DO NOT RESUSCITATE Patient is critically ill with poor prognosis son is aware We will discuss options of hospice and comfort care with the patient's son I answered all his questions,he requested to continue current management and DO NOT RESUSCITATE status if patient has cardiac arrest. The high probability of a clinically significant, sudden or life threatening deterioration of the [hemodynamic, cardiovascular, respiratory, metabolic, ] system(s) required my full and direct attention, intervention and personal management. The aggregate critical care time was [31] minutes. This time is in addition to time spent performing reported procedures but includes the following : [x] Data Review and interpretation [x] Patient assessment and monitoring of vital signs [x] Documentation [x] Medication orders and management History Interval history: Patient was admitted with acute respiratory failure requiring intubation Hypotension on pressors Patient looks critically, intubated and sedated, in mild distress Vital signs reviewed Patient's son is at the bedside Hospitalist Physical - Constitutional Vitals: Temp Pulse Resp BP Pulse Ox 100 F H 88 18 90/52 100 01/19/17 18:56 01/19/17 20:30 01/19/17 20:30 01/19/17 20:30 01/19/17 20:30 General appearance: Present: mild distress, cachectic, other (unresponsive, on the vent) - EENT Eyes: Present: PERRL, EOM intact - Neck Neck: Present: supple, normal ROM - Respiratory Respiratory effort: labored Respiratory: bilateral: diminished, rhonchi, negative: rales, wheezing - Cardiovascular Rhythm: regular Heart Sounds: Present: S1 & S2 - Extremities Extremities: no ischemia Extremity abnormal: edema - Abdominal General gastrointestinal: soft, non-tender, non-distended, normal bowel sounds - Integumentary Integumentary: Present: clear, warm - Psychiatric Psychiatric: other (intubated and sedated) - Neurologic Neurologic: other (intubated and sedated) Results - Labs CBC & Chem 7: 01/20/17 05:13 01/20/17 05:13 Labs: Laboratory Last Values WBC 22.9 K/mm3 (4.5-11.0) H 01/18/17 23:40 RBC 3.49 M/mm3 (3.65-5.03) L 01/18/17 23:40 Hgb 10.4 gm/dl (10.1-14.3) 01/18/17 23:40 Hct 32.3 % (30.3-42.9) 01/18/17 23:40 MCV 93 fl (79-97) 01/18/17 23:40 MCH 30 pg (28-32) 01/18/17 23:40 MCHC 32 % (30-34) 01/18/17 23:40 RDW 14.6 % (13.2-15.2) 01/18/17 23:40 Plt Count 520 K/mm3 (140-440) H 01/18/17 23:40 Add Manual Diff Complete 01/18/17 23:40 Total Counted 100 01/18/17 23:40 Seg Neutrophils % [employer] 01/18/17 23:40 Seg Neuts % (Manual) 79.0 % (40.0-70.0) H 01/18/17 23:40 Band Neutrophils % 18.0 % 01/18/17 23:40 Lymphocytes % (Manual) 3.0 % (13.4-35.0) L 01/18/17 23:40 Reactive Lymphs % (Man) 0 % 01/18/17 23:40 Monocytes % (Manual) 0 % (0.0-7.3) 01/18/17 23:40 Eosinophils % (Manual) 0 % (0.0-4.3) 01/18/17 23:40 Metamyelocytes % 0 % 01/18/17 23:40 Myelocytes % 0 % 01/18/17 23:40 Promyelocytes % 0 % 01/18/17 23:40 Blast Cells % 0 % 01/18/17 23:40 Nucleated RBC % Not Reportable 01/18/17 23:40 Seg Neutrophils # Man 18.1 K/mm3 (1.8-7.7) H 01/18/17 23:40 Band Neutrophils # 4.1 K/mm3 01/18/17 23:40 Lymphocytes # (Manual) 0.7 K/mm3 (1.2-5.4) L 01/18/17 23:40 Abs React Lymphs (Man) 0.0 K/mm3 01/18/17 23:40 Monocytes # (Manual) 0.0 K/mm3 (0.0-0.8) 01/18/17 23:40 Eosinophils # (Manual) 0.0 K/mm3 (0.0-0.4) 01/18/17 23:40 Basophils # (Manual) 0.0 K/mm3 (0.0-0.1) 01/18/17 23:40 Metamyelocytes # 0.0 K/mm3 01/18/17 23:40 Myelocytes # 0.0 K/mm3 01/18/17 23:40 Promyelocytes # 0.0 K/mm3 01/18/17 23:40 Blast Cells # 0.0 K/mm3 01/18/17 23:40 WBC Morphology Not Reportable 01/18/17 23:40 Hypersegmented Neuts Not Reportable 01/18/17 23:40 Hyposegmented Neuts Not Reportable 01/18/17 23:40 Hypogranular Neuts Not Reportable 01/18/17 23:40 Smudge Cells Not Reportable 01/18/17 23:40 Toxic Granulation Not Reportable 01/18/17 23:40 Toxic Vacuolation Not Reportable 01/18/17 23:40 Dohle Bodies Not Reportable 01/18/17 23:40 Pelger-Huet Anomaly Not Reportable 01/18/17 23:40 Yaron Rods Not Reportable 01/18/17 23:40 Platelet Estimate Appears increased 01/18/17 23:40 Clumped Platelets Not Reportable 01/18/17 23:40 Plt Clumps, EDTA Not Reportable 01/18/17 23:40 Large Platelets Not Reportable 01/18/17 23:40 Giant Platelets Not Reportable 01/18/17 23:40 Platelet Satelliting Not Reportable 01/18/17 23:40 Plt Morphology Comment Not Reportable 01/18/17 23:40 RBC Morphology Not Reportable 01/18/17 23:40 Dimorphic RBCs Not Reportable 01/18/17 23:40 Polychromasia Not Reportable 01/18/17 23:40 Hypochromasia Not Reportable 01/18/17 23:40 Poikilocytosis Not Reportable 01/18/17 23:40 Anisocytosis Not Reportable 01/18/17 23:40 Microcytosis Not Reportable 01/18/17 23:40 Macrocytosis Few 01/18/17 23:40 Spherocytes Not Reportable 01/18/17 23:40 Pappenheimer Bodies Not Reportable 01/18/17 23:40 Sickle Cells Not Reportable 01/18/17 23:40 Target Cells Not Reportable 01/18/17 23:40 Tear Drop Cells Not Reportable 01/18/17 23:40 Ovalocytes Not Reportable 01/18/17 23:40 Helmet Cells Not Reportable 01/18/17 23:40 [place] Bodies Not Reportable 01/18/17 23:40 [place] Rings Not Reportable 01/18/17 23:40 [place] Cells Not Reportable 01/18/17 23:40 Bite Cells Not Reportable 01/18/17 23:40 Crenated Cell Not Reportable 01/18/17 23:40 Elliptocytes Not Reportable 01/18/17 23:40 Acanthocytes (Spur) Not Reportable 01/18/17 23:40 Rouleaux Not Reportable 01/18/17 23:40 Hemoglobin C Crystals Not Reportable 01/18/17 23:40 Schistocytes Not Reportable 01/18/17 23:40 Malaria parasites Not Reportable 01/18/17 23:40 Darryn Bodies Not Reportable 01/18/17 23:40 Hem Pathologist Commnt No 01/18/17 23:40 POC ABG pH 7.373 (7.35-7.45) 01/19/17 04:48 POC ABG pCO2 42.6 (35-45) 01/19/17 04:48 POC ABG pO2 57 (80-105) L 01/19/17 04:48 POC ABG HCO3 24.8 01/19/17 04:48 POC ABG Total CO2 26 01/19/17 04:48 POC ABG O2 Sat 88 01/19/17 04:48 POC ABG Base Excess 0 01/19/17 04:48 FiO2 80 % 01/19/17 04:48 Sodium 158 mmol/L (137-145) H 01/19/17 12:05 Potassium 3.4 mmol/L (3.6-5.0) L 01/19/17 12:05 Chloride 119.4 mmol/L (98-107) H 01/19/17 12:05 Carbon Dioxide 26 mmol/L (22-30) 01/19/17 12:05 Anion Gap 16 mmol/L 01/19/17 12:05 BUN 34 mg/dL (7-17) H 01/19/17 12:05 Creatinine 0.8 mg/dL (0.7-1.2) 01/19/17 12:05 Estimated GFR > 60 ml/min 01/19/17 12:05 BUN/Creatinine Ratio 42.50 % 01/19/17 12:05 Glucose 127 mg/dL (65-100) H 01/19/17 12:05 Lactic Acid 4.00 mmol/L (0.7-2.0) H* 01/19/17 06:32 Calcium 7.7 mg/dL (8.4-10.2) L 01/19/17 12:05 Total Creatine Kinase 42 units/L (30-135) 01/19/17 09:55 CK-MB (CK-2) 3.1 ng/mL (0.0-4.0) 01/19/17 09:55 CK-MB (CK-2) Rel Index 7.3 (0-4) H 01/19/17 09:55 Troponin T 0.163 ng/mL (0.00-0.029) H* D 01/19/17 09:55 Triglycerides 173 mg/dL (2-149) H 01/18/17 23:40 Cholesterol 201 mg/dL (50-199) H 01/18/17 23:40 LDL Cholesterol Direct 121 mg/dL (50-130) 01/18/17 23:40 HDL Cholesterol 46 mg/dL (40-59) 01/18/17 23:40 Cholesterol/HDL Ratio 4.36 % 01/18/17 23:40 Urine Color Yellow (Yellow) 01/19/17 04:40 Urine Turbidity Clear (Clear) 01/19/17 04:40 Urine pH 6.0 (5.0-7.0) 01/19/17 04:40 Ur Specific [place] 1.017 (1.003-1.030) 01/19/17 04:40 Urine Protein <15 mg/dl mg/dL (Negative) 01/19/17 04:40 Urine Glucose (UA) Neg mg/dL (Negative) 01/19/17 04:40 Urine Ketones Neg mg/dL (Negative) 01/19/17 04:40 Urine Blood Neg (Negative) 01/19/17 04:40 Urine Nitrite Neg (Negative) 01/19/17 04:40 Urine Bilirubin Neg (Negative) 01/19/17 04:40 Urine Urobilinogen < 2.0 mg/dL (<2.0) 01/19/17 04:40 Ur Leukocyte Esterase Neg (Negative) 01/19/17 04:40 Urine WBC (Auto) 6.0 /HPF (0.0-6.0) 01/19/17 04:40 Urine RBC (Auto) 3.0 /HPF (0.0-6.0) 01/19/17 04:40 U Epithel Cells (Auto) 2.0 /HPF (0-13.0) 01/19/17 04:40 Hyaline Casts 2 /LPF 01/19/17 04:40 Urine Mucus 1+ /HPF 01/19/17 04:40 Blood Type B POSITIVE 01/19/17 00:45 Antibody Screen Negative 01/19/17 00:45
[2017-01-19] MEDS: ASPIRIN PR SCH (22:23)
[2017-01-19] MEDS: VANCOMYCIN 750 MG in NACL 0.9% 250ML 250 ML IV SCH (22:23)
[2017-01-19] MEDS ORDERED: AMIDATE IV ONE (23:26)
[2017-01-19] MEDS ORDERED: ZEMURON IV ONE (23:26)
[2017-01-20] MEDS: ZOSYN/NS 4.5GM/100ML 4.5 GM/100 ML VIAL IV SCH ×2 (00:44→06:15)
[2017-01-20 06:01] LABS: Hematocrit 33.7 % (30.3-42.9); Hemoglobin 10.3 gm/dl (10.1-14.3); Red Blood Count 3.41 M/mm3 (3.65-5.03); White Blood Count 21.9 K/mm3 (4.5-11.0)
[2017-01-20 06:02] LABS: Mean Corpuscular HGB Conc 31 % (30-34); Mean Corpuscular Hemoglobin 30 pg (28-32); Mean Corpuscular Volume 99 fl (79-97); Platelet Count 210 K/mm3 (140-440); Red Cell Distribution Width 16.2 % (13.2-15.2)
[2017-01-20 06:05] LABS: Albumin 1.7 g/dL (3.9-5); Albumin/Globulin Ratio 0.4 %; BUN/Creatinine Ratio 39.09; Bilirubin,Total 1.2 mg/dL (0.1-1.2); Calcium 7.8 mg/dL (8.4-10.2); Chloride 116.5 mmol/L (98-107); Magnesium 2.4 mg/dL (1.7-2.3); Phosphorous 2.4 mg/dL (2.5-4.5); Total Protein 5.8 g/dL (6.3-8.2)
[2017-01-20 06:17] LABS: Potassium 4.7 mmol/L (3.6-5.0)
[2017-01-20 06:41] LABS: Blastocytes % (Manual) 0 %
[2017-01-20 06:42] LABS: Basophils % (Manual) 0 % (0.0-1.8); Dohle Bodies Few; Eosinophils % (Manual) 0 % (0.0-4.3)
[2017-01-20 06:43] LABS: Burr Cells Rare; Diff Status Complete; Platelet Estimate Consistent w Auto; Spherocytes Few
--- NOTE | 2017-01-20 07:15 | XRay Report ---
Single view chest: Compared to 01/19/17. History: Followup respiratory failure. Findings: Normal cardiomediastinal silhouette. Trachea is midline. Tip of endotracheal tube in proximal right mainstem bronchus. Should be withdrawn approximately 4 cm. Bibasilar infiltrates. Decreasing infiltrates compared to previous study. Impression: Repositioning of endotracheal tube is needed. Bibasilar infiltrates. Decrease in infiltrates compared to previous study
[2017-01-20 07:17] LABS: ISTAT Base Excess -2; ISTAT HCO3 22.3; ISTAT PCO2 35.8 (35-45); ISTAT PH 7.403 (7.35-7.45); ISTAT PO2 132 (80-105); ISTAT SO2 99; ISTAT TCO2 23
--- NOTE | 2017-01-20 07:36 | Progress Note ---
Assessment and Plan - Patient Problems (1) DANIELLE (acute kidney injury) Current Visit: Yes Status: Acute Plan to address problem: Acute kidney injury in the setting of hypotension and sepsis. Continue IV fluids. (2) Azotemia Current Visit: Yes Status: Acute Plan to address problem: Continue IV fluids. (3) Hypernatremia Current Visit: Yes Status: Acute Plan to address problem: Sodium level is improving. (4) Hypokalemia Current Visit: Yes Status: Acute Plan to address problem: K level is better. (5) Metabolic acidosis Current Visit: Yes Status: Acute (6) Respiratory failure requiring intubation Current Visit: Yes Status: Acute (7) Sepsis Current Visit: Yes Status: Acute Qualifiers: Sepsis type: sepsis due to unspecified organism Qualified Code(s): A41.9 - Sepsis, unspecified organism Subjective Date of service: 01/20/17 Interval history: Patient remain on the vent. Objective - Vital Signs Vital signs: Vital Signs - 12hr 01/19/17 01/19/17 01/19/17 20:00 20:30 20:40 Temperature Pulse Rate 89 88 86 Respiratory 18 18 Rate Blood Pressure 92/55 90/52 90/52 O2 Sat by Pulse 100 100 100 Oximetry 01/19/17 01/19/17 01/19/17 21:00 21:30 22:00 Temperature Pulse Rate 86 77 83 Respiratory 18 18 18 Rate Blood Pressure 85/53 101/56 94/54 O2 Sat by Pulse 100 98 100 Oximetry 01/19/17 01/19/17 01/19/17 22:30 22:58 23:00 Temperature Pulse Rate 83 81 80 Respiratory 18 18 18 Rate Blood Pressure 83/52 83/52 91/53 O2 Sat by Pulse 100 100 100 Oximetry 01/19/17 01/19/17 01/20/17 23:30 23:57 00:00 Temperature Pulse Rate 76 75 72 Respiratory 18 18 Rate Blood Pressure 91/53 91/53 87/54 O2 Sat by Pulse 100 Oximetry 01/20/17 01/20/17 01/20/17 00:30 01:00 01:30 Temperature Pulse Rate 69 68 68 Respiratory 18 18 18 Rate Blood Pressure 83/48 86/50 87/52 O2 Sat by Pulse 100 100 Oximetry 01/20/17 01/20/17 01/20/17 02:00 02:30 03:00 Temperature Pulse Rate 82 74 71 Respiratory 14 18 18 Rate Blood Pressure 87/52 87/50 87/51 O2 Sat by Pulse 100 Oximetry 01/20/17 01/20/17 01/20/17 03:30 04:00 04:30 Temperature Pulse Rate 78 72 78 Respiratory 18 18 18 Rate Blood Pressure 81/48 79/45 93/62 O2 Sat by Pulse 99 Oximetry 01/20/17 01/20/17 01/20/17 04:45 05:00 05:15 Temperature Pulse Rate 67 67 76 Respiratory 18 18 18 Rate Blood Pressure 103/62 97/60 116/74 O2 Sat by Pulse 99 Oximetry 01/20/17 01/20/17 01/20/17 05:30 05:45 06:00 Temperature 97.7 F Pulse Rate 72 75 80 Respiratory 18 18 18 Rate Blood Pressure 119/67 123/70 125/72 O2 Sat by Pulse 100 85 99 Oximetry 01/20/17 01/20/17 01/20/17 06:16 06:30 06:45 Temperature Pulse Rate 85 88 84 Respiratory 18 16 18 Rate Blood Pressure 158/72 158/72 103/59 O2 Sat by Pulse 96 99 Oximetry - General Appearance General appearance: well-developed, appears stated age, intubated (FiO2 65%), frail EENT: ATNC, sclerotic cornea Neck: supple Respiratory: Present: Rales, Other (coarse breath sounds) Cardiology: regular, S1S2, no murmurs Gastrointestinal: normoactive bowel sounds, no tenderness Integumentary: no rash Neurologic: obtunded Musculoskeletal: other (left UE edematous) - Lab 01/20/17 05:13 01/20/17 05:13 Most recent lab results Calcium 7.8 mg/dL (8.4-10.2) L 01/20/17 05:13 Phosphorus 2.40 mg/dL (2.5-4.5) L 01/20/17 05:13 Magnesium 2.40 mg/dL (1.7-2.3) H 01/20/17 05:13
[2017-01-20] MEDS: fentaNYL DRIP Premix 2,000 MCG/100 ML BAG IV SCH (08:25)
--- NOTE | 2017-01-20 08:59 | Progress Note ---
Assessment and Plan - Patient Problems (1) Non-STEMI (non-ST elevated myocardial infarction) Current Visit: Yes Status: Acute Plan to address problem: RHYTHM IS SINUS,,,BP ACCEPTABLE WITH LOW DOSE LEVO' CONSIDER ECHO TO CHECK EF ADD BB & STATIN WHEN APPROPRIAT CONSIDER DNR/HOSPICE-I MENTIONED THIS TO ONE FAMILY MEMBER TODAY CONTINUE ASA/ANTICOAGULATION F/U EKG TODAY Px IS GUARDED (2) Shock Current Visit: Yes Status: Acute Plan to address problem: SUSPECT 2ND TO SEPSIS,,,CONTROLLED WITH LOW DOSE LEVO,,,, CXR IMPROVED,,,RENAL FUNCTION SATISFACTORY CONSIDER NEURO' EVALUATION FOR POSSIBLE METABOLIC ENCEPH' (3) Anemia Current Visit: Yes Status: Acute Qualifiers: Anemia type: A Iron deficiency anemia type: I Vitamin B12 deficiency anemia type: V Folate deficiency anemia type: F Bone marrow failure anemia type: B Hemolytic anemia type: H Other causes of anemia: O Chronic kidney disease stage: C (4) Hypernatremia Current Visit: Yes Status: Acute (5) Hypokalemia Current Visit: Yes Status: Acute (6) Respiratory failure requiring intubation Current Visit: Yes Status: Acute (7) Sepsis Current Visit: Yes Status: Acute Qualifiers: Sepsis type: sepsis due to unspecified organism Qualified Code(s): A41.9 - Sepsis, unspecified organism (8) Bilateral pneumonia Current Visit: No Status: Acute Qualifiers: Pneumonia type: aspiration pneumonia Aspiration pneumonia type: A Lung location: lower lobe of lung (9) Altered mental status Current Visit: No Status: Chronic Qualifiers: Altered mental status type: somnolence Coma depth: C Coma timing: C Qualified Code(s): R40.0 - Somnolence Subjective Date of service: 01/20/17 Interval history: ON THE VENT WITH LEVO',,,,UNRESPONSIVE Objective Vital Signs Temp Pulse Resp BP BP Pulse Ox 01/20/17 06:45 84 18 103/59 99 01/20/17 06:30 88 16 158/72 96 01/20/17 06:16 85 18 158/72 01/20/17 06:00 97.7 F 76 18 119/67 99 01/20/17 05:45 75 18 123/70 85 01/20/17 05:30 72 18 119/67 100 01/20/17 05:15 76 18 116/74 99 01/20/17 05:00 67 18 97/60 01/20/17 04:45 67 18 103/62 01/20/17 04:30 78 18 93/62 99 01/20/17 04:00 72 18 79/45 01/20/17 03:30 78 18 81/48 01/20/17 03:00 71 18 87/51 01/20/17 02:30 74 18 87/50 100 01/20/17 02:00 82 14 87/52 01/20/17 01:30 68 18 87/52 100 01/20/17 01:00 68 18 86/50 100 01/20/17 00:30 69 18 83/48 01/20/17 00:00 72 18 87/54 01/19/17 23:57 75 91/53 100 01/19/17 23:30 76 18 91/53 01/19/17 23:00 80 18 91/53 01/19/17 22:58 81 18 83/52 01/19/17 22:30 83 18 83/52 01/19/17 22:00 83 18 94/54 01/19/17 21:30 77 18 101/56 98 01/19/17 21:00 86 18 85/53 01/19/17 20:40 86 90/52 01/19/17 20:30 88 18 90/52 01/19/17 20:00 89 18 92/55 01/19/17 19:30 90 18 89/52 01/19/17 19:00 91 H 18 89/52 01/19/17 18:56 100 F H 90/56 01/19/17 18:45 94 H 18 85/56 01/19/17 18:30 95 H 18 88/56 01/19/17 18:15 94 H 18 86/55 01/19/17 18:00 96 H 18 91/55 01/19/17 17:45 94 H 18 91/59 01/19/17 17:30 95 H 18 93/55 01/19/17 17:15 94 H 18 93/53 01/19/17 17:00 98 H 18 93/59 01/19/17 16:45 93 H 18 95/56 01/19/17 16:30 93 H 18 88/56 01/19/17 16:19 101.4 F H 01/19/17 16:15 105 H 18 85/52 01/19/17 16:00 105 H 18 84/53 01/19/17 15:45 104 H 20 79/52 100 01/19/17 15:30 102 H 18 89/57 01/19/17 15:15 106 H 18 93/56 01/19/17 15:00 106 H 18 89/56 01/19/17 14:45 107 H 18 94/58 01/19/17 14:30 107 H 18 92/60 01/19/17 14:15 107 H 18 95/61 01/19/17 14:00 101 H 18 95/59 01/19/17 13:48 98 H 104/62 01/19/17 13:45 105 H 18 104/62 01/19/17 13:30 97 H 18 104/58 01/19/17 13:15 104 H 18 111/60 01/19/17 13:00 101 H 26 H 114/63 01/19/17 12:45 100 H 18 103/61 01/19/17 12:30 103 H 18 92/60 01/19/17 12:15 104 H 18 97/59 01/19/17 12:00 105 H 18 92/57 01/19/17 11:45 110 H 18 91/58 01/19/17 11:30 111 H 18 105/66 01/19/17 11:15 112 H 18 105/66 01/19/17 11:00 108 H 19 86/62 01/19/17 10:45 112 H 22 84/55 01/19/17 10:30 107 H 19 92/50 01/19/17 10:19 100.5 F H 01/19/17 10:15 109 H 25 H 97/58 01/19/17 10:14 108 H 97/58 01/19/17 10:00 115 H 21 94/61 01/19/17 09:45 118 H 18 96/60 01/19/17 09:30 119 H 18 86/58 01/19/17 09:15 114 H 26 H 91/55 01/19/17 09:00 96 H 15 94/59 100 - Physical Examination Neck: Positive: neck supple, trachea midline Cardiac: Positive: Reg Rate and Rhythm Lungs: Positive: Rhonchi Neuro: Positive: Other (unresponsive on the vent) Abdomen: Positive: Soft Skin: Positive: Clear Extremities: Present: Other (DIM' PULSES;PT,DP). Absent: edema - Labs and Meds Cardiac Enzymes 01/19/17 01/20/17 Range/Units 09:55 05:13 AST 59 H (5-40) units/L CK-MB (CK-2) 3.1 (0.0-4.0) ng/mL CBC 01/20/17 Range/Units 05:13 WBC 21.9 H (4.5-11.0) K/mm3 RBC 3.41 L (3.65-5.03) M/mm3 Hgb 10.3 (10.1-14.3) gm/dl Hct 33.7 (30.3-42.9) % Plt Count 210 (140-440) K/mm3 Comprehensive Metabolic Panel 01/19/17 01/19/17 01/20/17 Range/Units 11:30 12:05 05:13 Sodium 161 H* 158 H 151 H (137-145) mmol/L Potassium 3.5 L 3.4 L 4.7 D (3.6-5.0) mmol/L Chloride 120.8 H 119.4 H 116.5 H (98-107) mmol/L Carbon Dioxide 27 26 17 L D (22-30) mmol/L BUN 36 H 34 H 43 H (7-17) mg/dL Creatinine 0.8 0.8 1.1 (0.7-1.2) mg/dL Glucose 119 H 127 H 112 H (65-100) mg/dL Calcium 7.6 L 7.7 L 7.8 L (8.4-10.2) mg/dL AST 59 H (5-40) units/L ALT 14 (7-56) units/L Alkaline Phosphatase 76 (35-129) units/L Total Protein 5.8 L (6.3-8.2) g/dL Albumin 1.7 L (3.9-5) g/dL - Imaging and Cardiology EKG: image reviewed
--- NOTE | 2017-01-20 11:03 | Progress Note ---
Assessment and Plan 81 y/o female with mulitiple comorbidities admitted with acute respiratory failure and failure to thrive and NSTEMi 1. Continue vent support 2. Agree with broad spec abx therapy given patient was just discharged from the hospital earlier this month 3. Correct electrolyte imbalances 4. overall prognosis is poor, would suggest hospice which primary has already spoken to family about. Will continue to supportive care. CCT 31 minutes Subjective Date of service: 01/20/17 Interval history: No acute events. Remains on vent, no sedation. Objective Vital Signs - 12hr 01/19/17 01/19/17 01/20/17 23:30 23:57 00:00 Temperature Pulse Rate 76 75 72 Respiratory 18 18 Rate Blood Pressure 91/53 91/53 87/54 O2 Sat by Pulse 100 Oximetry 01/20/17 01/20/17 01/20/17 00:30 01:00 01:30 Temperature Pulse Rate 69 68 68 Respiratory 18 18 18 Rate Blood Pressure 83/48 86/50 87/52 O2 Sat by Pulse 100 100 Oximetry 01/20/17 01/20/17 01/20/17 02:00 02:30 03:00 Temperature Pulse Rate 82 74 71 Respiratory 14 18 18 Rate Blood Pressure 87/52 87/50 87/51 O2 Sat by Pulse 100 Oximetry 01/20/17 01/20/17 01/20/17 03:30 04:00 04:30 Temperature Pulse Rate 78 72 78 Respiratory 18 18 18 Rate Blood Pressure 81/48 79/45 93/62 O2 Sat by Pulse 99 Oximetry 01/20/17 01/20/17 01/20/17 04:45 05:00 05:15 Temperature Pulse Rate 67 67 76 Respiratory 18 18 18 Rate Blood Pressure 103/62 97/60 116/74 O2 Sat by Pulse 99 Oximetry 01/20/17 01/20/17 01/20/17 05:30 05:45 06:00 Temperature 97.7 F Pulse Rate 72 75 76 Respiratory 18 18 18 Rate Blood Pressure 119/67 123/70 119/67 O2 Sat by Pulse 100 85 99 Oximetry 01/20/17 01/20/17 01/20/17 06:16 06:30 06:45 Temperature Pulse Rate 85 88 84 Respiratory 18 16 18 Rate Blood Pressure 158/72 158/72 103/59 O2 Sat by Pulse 96 99 Oximetry 01/20/17 01/20/17 01/20/17 07:00 07:15 07:30 Temperature Pulse Rate 83 76 76 Respiratory 19 18 18 Rate Blood Pressure 108/62 108/56 86/51 O2 Sat by Pulse 99 100 100 Oximetry 01/20/17 01/20/17 01/20/17 07:45 08:00 08:15 Temperature Pulse Rate 73 75 77 Respiratory 18 18 18 Rate Blood Pressure 89/53 101/56 106/65 O2 Sat by Pulse 100 Oximetry 01/20/17 01/20/17 01/20/17 08:30 08:45 08:50 Temperature Pulse Rate 76 73 77 Respiratory 18 18 Rate Blood Pressure 97/59 116/59 116/59 O2 Sat by Pulse 100 100 100 Oximetry 01/20/17 01/20/17 01/20/17 09:00 09:15 09:30 Temperature Pulse Rate 76 72 73 Respiratory 18 18 18 Rate Blood Pressure 112/63 107/60 108/59 O2 Sat by Pulse 100 100 100 Oximetry 01/20/17 01/20/17 01/20/17 09:45 10:00 10:15 Temperature Pulse Rate 72 74 75 Respiratory 18 18 18 Rate Blood Pressure 110/59 109/61 113/62 O2 Sat by Pulse 100 100 100 Oximetry Constitutional: no acute distress, comatose Eyes: non-icteric ENT: other (orally intubated and critically ill on vent) Effort: mildly labored Ascultation: Bilateral: rales Percussion: Bilateral: not dull Cardiovascular: regular rate and rhythm CBC and BMP: 01/21/17 04:00 01/21/17 04:00 ABG, PT/INR, D-dimer: ABG POC ABG pH 7.403 (7.35-7.45) 01/20/17 06:00 POC ABG pCO2 35.8 (35-45) 01/20/17 06:00 POC ABG pO2 132 (80-105) H 01/20/17 06:00 POC ABG HCO3 22.3 01/20/17 06:00 POC ABG Total CO2 23 01/20/17 06:00 POC ABG O2 Sat 99 01/20/17 06:00 Abnormal lab findings: Abnormal Labs 01/19/17 01/19/17 01/19/17 04:48 06:32 06:32 WBC RBC MCV RDW Seg Neuts % (Manual) Lymphocytes % (Manual) Lymphocytes # (Manual) POC ABG pO2 57 L Sodium Potassium Chloride Carbon Dioxide BUN Glucose POC Glucose Lactic Acid Calcium Phosphorus Magnesium AST CK-MB (CK-2) Rel Index 8.2 H Troponin T 0.126 H* D Total Protein Albumin 01/19/17 01/19/17 01/19/17 06:32 06:32 07:41 WBC RBC MCV RDW Seg Neuts % (Manual) Lymphocytes % (Manual) Lymphocytes # (Manual) POC ABG pO2 Sodium 156 H 159 H Potassium 3.5 L D 3.5 L Chloride 116.6 H 119.5 H Carbon Dioxide BUN 34 H 33 H Glucose 124 H 118 H POC Glucose Lactic Acid 4.00 H* Calcium 7.9 L 7.8 L Phosphorus Magnesium AST CK-MB (CK-2) Rel Index Troponin T Total Protein Albumin 01/19/17 01/19/17 01/19/17 09:55 09:55 11:30 WBC RBC MCV RDW Seg Neuts % (Manual) Lymphocytes % (Manual) Lymphocytes # (Manual) POC ABG pO2 Sodium 161 H* Potassium 3.5 L Chloride 120.8 H Carbon Dioxide BUN 36 H Glucose 119 H POC Glucose Lactic Acid Calcium 7.6 L Phosphorus Magnesium AST CK-MB (CK-2) Rel Index 7.3 H Troponin T 0.163 H* D Total Protein Albumin 01/19/17 01/20/17 01/20/17 12:05 05:13 05:13 WBC 21.9 H RBC 3.41 L MCV 99 H RDW 16.2 H Seg Neuts % (Manual) 34.0 L Lymphocytes % (Manual) 3.0 L Lymphocytes # (Manual) 0.7 L POC ABG pO2 Sodium 158 H 151 H Potassium 3.4 L Chloride 119.4 H 116.5 H Carbon Dioxide 17 L D BUN 34 H 43 H Glucose 127 H 112 H POC Glucose Lactic Acid Calcium 7.7 L 7.8 L Phosphorus 2.40 L Magnesium 2.40 H AST 59 H CK-MB (CK-2) Rel Index Troponin T Total Protein 5.8 L Albumin 1.7 L 01/20/17 01/20/17 06:00 10:31 WBC RBC MCV RDW Seg Neuts % (Manual) Lymphocytes % (Manual) Lymphocytes # (Manual) POC ABG pO2 132 H Sodium Potassium Chloride Carbon Dioxide BUN Glucose POC Glucose 115 H Lactic Acid Calcium Phosphorus Magnesium AST CK-MB (CK-2) Rel Index Troponin T Total Protein Albumin
--- NOTE | 2017-01-20 11:07 | Progress Note ---
Assessment and Plan Assessment and plan: --Acute respiratory failure; requiring intubation Continue ventilatory support, nebulizers, pulmonary following supportive care --Hypotension/septic shock; IV hydration, pressors, antibiotics, follow cultures, consider ID evaluation if needed --Sepsis; secondary to HCAP, IV antibiotics, follow cultures --Hypernatremia: Significantly improved continue D5W, free water flushes, closely monitor electrolytes, Nephrology following --Leukocytosis; secondary to sepsis, trending down --Hypokalemia; corrected --Elevated cardiac enzymes, rule out non-ST elevation NC Cardiology evaluation noted , part a candidate for aggressive workup Medical management aspirin, no beta blockers or Navid inhibitors secondary to hypotension, --Severe protein calorie malnutrition; supportive care, nutritional supplements --DVT prophylaxis; SCDs CODE STATUS; DO NOT RESUSCITATE Patient is critically ill with poor prognosis son is aware We will discuss options of hospice and comfort care with the patient's son Critical care time 32 minutes The high probability of a clinically significant, sudden or life threatening deterioration of the [hemodynamic, cardiovascular, respiratory, metabolic, ] system(s) required my full and direct attention, intervention and personal management. The aggregate critical care time was [32] minutes. This time is in addition to time spent performing reported procedures but includes the following : [x] Data Review and interpretation [x] Patient assessment and monitoring of vital signs [x] Documentation [x] Medication orders and management History Interval history: Patient seen and examined in ER awaiting ICU placement . Patient remains intubated on ventilatory support, looks chronically ill On leviphed Hospitalist Physical - Constitutional Vitals: Temp Pulse Resp BP Pulse Ox 97.7 F 75 18 113/62 100 01/20/17 06:00 01/20/17 10:15 01/20/17 10:15 01/20/17 10:15 01/20/17 10:15 General appearance: Present: mild distress, cachectic, other (unresponsive, intubated on the vent) - EENT Eyes: Present: PERRL, EOM intact - Neck Neck: Present: supple, normal ROM - Respiratory Respiratory effort: labored Respiratory: bilateral: diminished, rhonchi, negative: rales, wheezing - Cardiovascular Rhythm: regular Heart Sounds: Present: S1 & S2 - Extremities Extremities: no ischemia Extremity abnormal: edema - Abdominal General gastrointestinal: soft, non-tender, non-distended, normal bowel sounds - Integumentary Integumentary: Present: clear, warm - Psychiatric Psychiatric: other (intubated and sedated) - Neurologic Neurologic: other (intubated and sedated) Results - Labs CBC & Chem 7: 01/20/17 05:13 01/20/17 05:13 Labs: Laboratory Last Values WBC 21.9 K/mm3 (4.5-11.0) H 01/20/17 05:13 RBC 3.41 M/mm3 (3.65-5.03) L 01/20/17 05:13 Hgb 10.3 gm/dl (10.1-14.3) 01/20/17 05:13 Hct 33.7 % (30.3-42.9) 01/20/17 05:13 MCV 99 fl (79-97) H 01/20/17 05:13 MCH 30 pg (28-32) 01/20/17 05:13 MCHC 31 % (30-34) 01/20/17 05:13 RDW 16.2 % (13.2-15.2) H 01/20/17 05:13 Plt Count 210 K/mm3 (140-440) 01/20/17 05:13 Add Manual Diff Complete 01/20/17 05:13 Total Counted 100 01/20/17 05:13 Seg Neutrophils % Feed Crusher Operator 01/18/17 23:40 Seg Neuts % (Manual) 34.0 % (40.0-70.0) L 01/20/17 05:13 Band Neutrophils % 51.0 % 01/20/17 05:13 Lymphocytes % (Manual) 3.0 % (13.4-35.0) L 01/20/17 05:13 Reactive Lymphs % (Man) 0 % 01/20/17 05:13 Monocytes % (Manual) 2.0 % (0.0-7.3) 01/20/17 05:13 Eosinophils % (Manual) 0 % (0.0-4.3) 01/20/17 05:13 Basophils % (Manual) 0 % (0.0-1.8) 01/20/17 05:13 Metamyelocytes % 9.0 % 01/20/17 05:13 Myelocytes % 0 % 01/20/17 05:13 Promyelocytes % 1.0 % 01/20/17 05:13 Blast Cells % 0 % 01/20/17 05:13 Nucleated RBC % Not Reportable 01/20/17 05:13 Seg Neutrophils # Man 7.4 K/mm3 (1.8-7.7) 01/20/17 05:13 Band Neutrophils # 11.2 K/mm3 01/20/17 05:13 Lymphocytes # (Manual) 0.7 K/mm3 (1.2-5.4) L 01/20/17 05:13 Abs React Lymphs (Man) 0.0 K/mm3 01/20/17 05:13 Monocytes # (Manual) 0.4 K/mm3 (0.0-0.8) 01/20/17 05:13 Eosinophils # (Manual) 0.0 K/mm3 (0.0-0.4) 01/20/17 05:13 Basophils # (Manual) 0.0 K/mm3 (0.0-0.1) 01/20/17 05:13 Metamyelocytes # 2.0 K/mm3 01/20/17 05:13 Myelocytes # 0.0 K/mm3 01/20/17 05:13 Promyelocytes # 0.2 K/mm3 01/20/17 05:13 Blast Cells # 0.0 K/mm3 01/20/17 05:13 WBC Morphology Not Reportable 01/20/17 05:13 Hypersegmented Neuts Not Reportable 01/20/17 05:13 Hyposegmented Neuts Not Reportable 01/20/17 05:13 Hypogranular Neuts Not Reportable 01/20/17 05:13 Smudge Cells Not Reportable 01/20/17 05:13 Toxic Granulation Not Reportable 01/20/17 05:13 Toxic Vacuolation Not Reportable 01/20/17 05:13 Dohle Bodies Few 01/20/17 05:13 Pelger-Huet Anomaly Not Reportable 01/20/17 05:13 Yaron Rods Not Reportable 01/20/17 05:13 Platelet Estimate Consistent w auto 01/20/17 05:13 Clumped Platelets Not Reportable 01/20/17 05:13 Plt Clumps, EDTA Not Reportable 01/20/17 05:13 Large Platelets Not Reportable 01/20/17 05:13 Giant Platelets Not Reportable 01/20/17 05:13 Platelet Satelliting Not Reportable 01/20/17 05:13 Plt Morphology Comment Not Reportable 01/20/17 05:13 RBC Morphology Not Reportable 01/20/17 05:13 Dimorphic RBCs Not Reportable 01/20/17 05:13 Polychromasia Not Reportable 01/20/17 05:13 Hypochromasia Not Reportable 01/20/17 05:13 Poikilocytosis Not Reportable 01/20/17 05:13 Anisocytosis Not Reportable 01/20/17 05:13 Microcytosis Not Reportable 01/20/17 05:13 Macrocytosis Not Reportable 01/20/17 05:13 Spherocytes Few 01/20/17 05:13 Pappenheimer Bodies Not Reportable 01/20/17 05:13 Sickle Cells Not Reportable 01/20/17 05:13 Target Cells Not Reportable 01/20/17 05:13 Tear Drop Cells Not Reportable 01/20/17 05:13 Ovalocytes Not Reportable 01/20/17 05:13 Helmet Cells Not Reportable 01/20/17 05:13 [place] Bodies Not Reportable 01/20/17 05:13 [place] Rings Not Reportable 01/20/17 05:13 Rives Cells Rare 01/20/17 05:13 Bite Cells Not Reportable 01/20/17 05:13 Crenated Cell Not Reportable 01/20/17 05:13 Elliptocytes Not Reportable 01/20/17 05:13 Acanthocytes (Spur) Not Reportable 01/20/17 05:13 Rouleaux Not Reportable 01/20/17 05:13 Hemoglobin C Crystals Not Reportable 01/20/17 05:13 Schistocytes Not Reportable 01/20/17 05:13 Malaria parasites Not Reportable 01/20/17 05:13 Darryn Bodies Not Reportable 01/20/17 05:13 Hem Pathologist Commnt No 01/20/17 05:13 POC ABG pH 7.403 (7.35-7.45) 01/20/17 06:00 POC ABG pCO2 35.8 (35-45) 01/20/17 06:00 POC ABG pO2 132 (80-105) H 01/20/17 06:00 POC ABG HCO3 22.3 01/20/17 06:00 POC ABG Total CO2 23 01/20/17 06:00 POC ABG O2 Sat 99 01/20/17 06:00 POC ABG Base Excess -2 01/20/17 06:00 FiO2 80 % 01/20/17 06:00 Sodium 151 mmol/L (137-145) H 01/20/17 05:13 Potassium 4.7 mmol/L (3.6-5.0) D 01/20/17 05:13 Chloride 116.5 mmol/L (98-107) H 01/20/17 05:13 Carbon Dioxide 17 mmol/L (22-30) L D 01/20/17 05:13 Anion Gap 22 mmol/L 01/20/17 05:13 BUN 43 mg/dL (7-17) H 01/20/17 05:13 Creatinine 1.1 mg/dL (0.7-1.2) 01/20/17 05:13 Estimated GFR 48 ml/min 01/20/17 05:13 BUN/Creatinine Ratio 39.09 % 01/20/17 05:13 Glucose 112 mg/dL (65-100) H 01/20/17 05:13 POC Glucose 115 (70-105) H 01/20/17 10:31 Lactic Acid 4.00 mmol/L (0.7-2.0) H* 01/19/17 06:32 Calcium 7.8 mg/dL (8.4-10.2) L 01/20/17 05:13 Phosphorus 2.40 mg/dL (2.5-4.5) L 01/20/17 05:13 Magnesium 2.40 mg/dL (1.7-2.3) H 01/20/17 05:13 Total Bilirubin 1.20 mg/dL (0.1-1.2) 01/20/17 05:13 AST 59 units/L (5-40) H 01/20/17 05:13 ALT 14 units/L (7-56) 01/20/17 05:13 Alkaline Phosphatase 76 units/L (35-129) 01/20/17 05:13 Total Creatine Kinase 42 units/L (30-135) 01/19/17 09:55 CK-MB (CK-2) 3.1 ng/mL (0.0-4.0) 01/19/17 09:55 CK-MB (CK-2) Rel Index 7.3 (0-4) H 01/19/17 09:55 Troponin T 0.163 ng/mL (0.00-0.029) H* D 01/19/17 09:55 Total Protein 5.8 g/dL (6.3-8.2) L 01/20/17 05:13 Albumin 1.7 g/dL (3.9-5) L 01/20/17 05:13 Albumin/Globulin Ratio 0.4 % 01/20/17 05:13 Triglycerides 173 mg/dL (2-149) H 01/18/17 23:40 Cholesterol 201 mg/dL (50-199) H 01/18/17 23:40 LDL Cholesterol Direct 121 mg/dL (50-130) 01/18/17 23:40 HDL Cholesterol 46 mg/dL (40-59) 01/18/17 23:40 Cholesterol/HDL Ratio 4.36 % 01/18/17 23:40 Urine Color Yellow (Yellow) 01/19/17 04:40 Urine Turbidity Clear (Clear) 01/19/17 04:40 Urine pH 6.0 (5.0-7.0) 01/19/17 04:40 Ur Specific Zachary 1.017 (1.003-1.030) 01/19/17 04:40 Urine Protein <15 mg/dl mg/dL (Negative) 01/19/17 04:40 Urine Glucose (UA) Neg mg/dL (Negative) 01/19/17 04:40 Urine Ketones Neg mg/dL (Negative) 01/19/17 04:40 Urine Blood Neg (Negative) 01/19/17 04:40 Urine Nitrite Neg (Negative) 01/19/17 04:40 Urine Bilirubin Neg (Negative) 01/19/17 04:40 Urine Urobilinogen < 2.0 mg/dL (<2.0) 01/19/17 04:40 Ur Leukocyte Esterase Neg (Negative) 01/19/17 04:40 Urine WBC (Auto) 6.0 /HPF (0.0-6.0) 01/19/17 04:40 Urine RBC (Auto) 3.0 /HPF (0.0-6.0) 01/19/17 04:40 U Epithel Cells (Auto) 2.0 /HPF (0-13.0) 01/19/17 04:40 Hyaline Casts 2 /LPF 01/19/17 04:40 Urine Mucus 1+ /HPF 01/19/17 04:40 Blood Type B POSITIVE 01/19/17 00:45 Antibody Screen Negative 01/19/17 00:45
[2017-01-20] MEDS: D5W 1,000 ML IV SCH (11:42)
[2017-01-20] MEDS ORDERED: D5NS 1,000 ML IV SCH (12:00)
[2017-01-20] MEDS: PEPCID IV SCH (12:04)
[2017-01-20] MEDS: LOVENOX SUB-Q SCH (12:04)
[2017-01-20] MEDS: ASPIRIN PR SCH (12:04)
[2017-01-20] MEDS: ZOSYN/NS 2.25 GM/50ML 2.25 GM/50 ML BAG IV SCH ×3 (13:08→18:00)
[2017-01-20] MEDS: VANCOMYCIN 750 MG in NACL 0.9% 250ML 250 ML IV SCH (21:49)
[2017-01-20] MEDS: ARTIFICIAL TEARS OPHTH OINT OU PRN (21:49)
[2017-01-21] MEDS: ZOSYN/NS 2.25 GM/50ML 2.25 GM/50 ML BAG IV SCH ×5 (00:14→23:56)
[2017-01-21 05:11] LABS: ISTAT Base Excess -2; ISTAT HCO3 21.8; ISTAT PCO2 30.8 (35-45); ISTAT PH 7.459 (7.35-7.45); ISTAT PO2 163 (80-105); ISTAT SO2 100; ISTAT TCO2 23
[2017-01-21 06:41] LABS: Hematocrit 26.4 % (30.3-42.9); Hemoglobin 8.7 gm/dl (10.1-14.3); Mean Corpuscular HGB Conc 33 % (30-34); Mean Corpuscular Hemoglobin 31 pg (28-32); Mean Corpuscular Volume 93 fl (79-97); Platelet Count 183 K/mm3 (140-440); Red Blood Count 2.85 M/mm3 (3.65-5.03); Red Cell Distribution Width 14.9 % (13.2-15.2)
[2017-01-21 06:49] LABS: Anion Gap 15 mmol/L; Blood Urea Nitrogen 32 mg/dL (7-17); Calcium 7.5 mg/dL (8.4-10.2); Carbon Dioxide 22 mmol/L (22-30); Chloride 119.8 mmol/L (98-107); Glucose 93 mg/dL (65-100); Sodium 154 mmol/L (137-145)
[2017-01-21 06:58] LABS: White Blood Count 22.4 K/mm3 (4.5-11.0)
[2017-01-21 07:09] LABS: Potassium 2.7 mmol/L (3.6-5.0)
[2017-01-21] MEDS ORDERED: K-DUR PO NR (07:30)
[2017-01-21 07:50] LABS: Basophils % (Manual) 0 % (0.0-1.8); Blastocytes % (Manual) 0 %
[2017-01-21 07:51] LABS: Anisocytosis Few; Burr Cells Rare; Dohle Bodies Few; Spherocytes Few
[2017-01-21 07:52] LABS: Diff Status Complete
[2017-01-21] MEDS ORDERED: KPHOS 40 MMOL in NACL 0.9% 500 ML 500 ML IV ONE (08:00)
--- NOTE | 2017-01-21 09:13 | Progress Note ---
Assessment and Plan - Patient Problems (1) DANIELLE (acute kidney injury) Current Visit: Yes Status: Acute Plan to address problem: Acute kidney injury in the setting of hypotension and sepsis. Creatinine is better today. Continue IV fluids. (2) Azotemia Current Visit: Yes Status: Acute Plan to address problem: Improving. Continue IV fluids. (3) Hypernatremia Current Visit: Yes Status: Acute Plan to address problem: Change IV fluids to 1/2 NS. (4) Hypokalemia Current Visit: Yes Status: Acute Plan to address problem: Replete K. (5) Metabolic acidosis Current Visit: Yes Status: Acute (6) Respiratory failure requiring intubation Current Visit: Yes Status: Acute (7) Sepsis Current Visit: Yes Status: Acute Qualifiers: Sepsis type: sepsis due to unspecified organism Qualified Code(s): A41.9 - Sepsis, unspecified organism Subjective Date of service: 01/21/17 Interval history: Patient remain on the vent. Objective - Vital Signs Vital signs: Vital Signs - 12hr 01/20/17 01/20/17 01/21/17 22:00 23:00 00:00 Temperature 98.1 F Pulse Rate 88 77 98 H Pulse Rate [ 78 From Monitor] Respiratory 18 18 20 Rate Blood Pressure 127/60 119/58 137/76 O2 Sat by Pulse 99 100 100 Oximetry 01/21/17 01/21/17 01/21/17 00:22 01:00 02:00 Temperature Pulse Rate 78 76 97 H Pulse Rate [ From Monitor] Respiratory 18 26 H Rate Blood Pressure 137/76 109/53 109/53 O2 Sat by Pulse 100 100 100 Oximetry 01/21/17 01/21/17 01/21/17 03:00 04:00 04:40 Temperature 99.2 F Pulse Rate 79 78 85 Pulse Rate [ 76 From Monitor] Respiratory 17 18 Rate Blood Pressure 115/55 124/61 124/61 O2 Sat by Pulse 97 99 100 Oximetry 01/21/17 01/21/17 01/21/17 05:00 06:00 07:00 Temperature Pulse Rate 87 93 H 88 Pulse Rate [ From Monitor] Respiratory 16 16 16 Rate Blood Pressure 127/62 142/66 146/70 O2 Sat by Pulse 97 96 98 Oximetry 01/21/17 01/21/17 01/21/17 07:49 08:00 08:27 Temperature 98.0 F Pulse Rate 87 89 Pulse Rate [ From Monitor] Respiratory 28 H 16 Rate Blood Pressure 146/70 146/70 O2 Sat by Pulse 100 98 97 Oximetry - General Appearance General appearance: well-developed, appears stated age, intubated EENT: ATNC, sclerotic cornea (left side) Neck: supple Respiratory: Present: Other (coarse breath sounds) Cardiology: regular, S1S2, no murmurs Gastrointestinal: normoactive bowel sounds Integumentary: no rash Neurologic: obtunded Musculoskeletal: other (no edema) - Lab 01/21/17 04:00 01/21/17 04:00 Most recent lab results Calcium 7.5 mg/dL (8.4-10.2) L 01/21/17 04:00 Phosphorus 1.80 mg/dL (2.5-4.5) L D 01/21/17 04:00 Magnesium 2.40 mg/dL (1.7-2.3) H 01/20/17 05:13
[2017-01-21] MEDS: PEPCID IV SCH (09:34)
[2017-01-21] MEDS: LOVENOX SUB-Q SCH (09:34)
[2017-01-21] MEDS: ASPIRIN PR SCH (09:34)
--- NOTE | 2017-01-21 09:40 | XRay Report ---
Single view chest: Compared to 01/20/17. History: Followup respiratory failure. Findings: Tip of endotracheal tube in proximal right mainstem bronchus. It should be withdrawn approximately 3 cm. Emphysema. Cardiomegaly. No significant interval change. Impression: No significant interval change.
[2017-01-21] MEDS ORDERED: SIMPLE SYRUP FEEDTUBE PRN ×2 (10:00)
[2017-01-21] MEDS ORDERED: PANCREAZE DR 10,500 UNIT FEEDTUBE PRN (10:00)
[2017-01-21] MEDS ORDERED: SODIUM BICARBONATE FEEDTUBE PRN (10:00)
--- NOTE | 2017-01-21 11:05 | Progress Note ---
Assessment and Plan 81 y/o female with mulitiple comorbidities admitted with acute respiratory failure and failure to thrive and NSTEMi 1. Agree with hospice 2. continue supportive care until transition from this hospital CCT 31 minutes Subjective Date of service: 01/21/17 Interval history: No acute events. Mental status is unchanged. Getting renal ultrasound now Objective Vital Signs - 12hr 01/21/17 01/21/17 01/21/17 00:00 00:22 01:00 Temperature 98.1 F Pulse Rate 98 H 78 76 Pulse Rate [ 78 From Monitor] Respiratory 20 18 Rate Blood Pressure 137/76 137/76 109/53 O2 Sat by Pulse 100 100 100 Oximetry 01/21/17 01/21/17 01/21/17 02:00 03:00 04:00 Temperature 99.2 F Pulse Rate 97 H 79 78 Pulse Rate [ 76 From Monitor] Respiratory 26 H 17 18 Rate Blood Pressure 109/53 115/55 124/61 O2 Sat by Pulse 100 97 99 Oximetry 01/21/17 01/21/17 01/21/17 04:40 05:00 06:00 Temperature Pulse Rate 85 87 93 H Pulse Rate [ From Monitor] Respiratory 16 16 Rate Blood Pressure 124/61 127/62 142/66 O2 Sat by Pulse 100 97 96 Oximetry 01/21/17 01/21/17 01/21/17 07:00 07:49 08:00 Temperature 98.0 F Pulse Rate 88 87 Pulse Rate [ From Monitor] Respiratory 16 28 H 16 Rate Blood Pressure 146/70 146/70 O2 Sat by Pulse 98 100 98 Oximetry 01/21/17 08:27 Temperature Pulse Rate 89 Pulse Rate [ From Monitor] Respiratory Rate Blood Pressure 146/70 O2 Sat by Pulse 97 Oximetry Constitutional: no acute distress, comatose Eyes: non-icteric ENT: other (orally intubated and critically ill on vent) Effort: mildly labored Ascultation: Bilateral: rales Percussion: Bilateral: not dull Cardiovascular: regular rate and rhythm CBC and BMP: 01/22/17 05:05 01/22/17 05:05 ABG, PT/INR, D-dimer: ABG POC ABG pH 7.459 (7.35-7.45) H 01/21/17 04:45 POC ABG pCO2 30.8 (35-45) L 01/21/17 04:45 POC ABG pO2 163 (80-105) H 01/21/17 04:45 POC ABG HCO3 21.8 01/21/17 04:45 POC ABG Total CO2 23 01/21/17 04:45 POC ABG O2 Sat 100 01/21/17 04:45 Abnormal lab findings: Abnormal Labs 01/19/17 01/19/17 01/19/17 04:48 06:32 06:32 WBC RBC Hgb Hct MCV RDW Seg Neuts % (Manual) Lymphocytes % (Manual) Seg Neutrophils # Man Lymphocytes # (Manual) POC ABG pH POC ABG pCO2 POC ABG pO2 57 L Sodium Potassium Chloride Carbon Dioxide BUN Glucose POC Glucose Lactic Acid Calcium Phosphorus Magnesium AST CK-MB (CK-2) Rel Index 8.2 H Troponin T 0.126 H* D Total Protein Albumin 01/19/17 01/19/17 01/19/17 06:32 06:32 07:41 WBC RBC Hgb Hct MCV RDW Seg Neuts % (Manual) Lymphocytes % (Manual) Seg Neutrophils # Man Lymphocytes # (Manual) POC ABG pH POC ABG pCO2 POC ABG pO2 Sodium 156 H 159 H Potassium 3.5 L D 3.5 L Chloride 116.6 H 119.5 H Carbon Dioxide BUN 34 H 33 H Glucose 124 H 118 H POC Glucose Lactic Acid 4.00 H* Calcium 7.9 L 7.8 L Phosphorus Magnesium AST CK-MB (CK-2) Rel Index Troponin T Total Protein Albumin 01/19/17 01/19/17 01/19/17 09:55 09:55 11:30 WBC RBC Hgb Hct MCV RDW Seg Neuts % (Manual) Lymphocytes % (Manual) Seg Neutrophils # Man Lymphocytes # (Manual) POC ABG pH POC ABG pCO2 POC ABG pO2 Sodium 161 H* Potassium 3.5 L Chloride 120.8 H Carbon Dioxide BUN 36 H Glucose 119 H POC Glucose Lactic Acid Calcium 7.6 L Phosphorus Magnesium AST CK-MB (CK-2) Rel Index 7.3 H Troponin T 0.163 H* D Total Protein Albumin 01/19/17 01/20/17 01/20/17 12:05 05:13 05:13 WBC 21.9 H RBC 3.41 L Hgb Hct MCV 99 H RDW 16.2 H Seg Neuts % (Manual) 34.0 L Lymphocytes % (Manual) 3.0 L Seg Neutrophils # Man Lymphocytes # (Manual) 0.7 L POC ABG pH POC ABG pCO2 POC ABG pO2 Sodium 158 H 151 H Potassium 3.4 L Chloride 119.4 H 116.5 H Carbon Dioxide 17 L D BUN 34 H 43 H Glucose 127 H 112 H POC Glucose Lactic Acid Calcium 7.7 L 7.8 L Phosphorus 2.40 L Magnesium 2.40 H AST 59 H CK-MB (CK-2) Rel Index Troponin T Total Protein 5.8 L Albumin 1.7 L 01/20/17 01/20/17 01/21/17 06:00 10:31 04:00 WBC 22.4 H RBC 2.85 L Hgb 8.7 L Hct 26.4 L D MCV RDW Seg Neuts % (Manual) Lymphocytes % (Manual) 7.0 L Seg Neutrophils # Man 10.3 H Lymphocytes # (Manual) POC ABG pH POC ABG pCO2 POC ABG pO2 132 H Sodium Potassium Chloride Carbon Dioxide BUN Glucose POC Glucose 115 H Lactic Acid Calcium Phosphorus Magnesium AST CK-MB (CK-2) Rel Index Troponin T Total Protein Albumin 01/21/17 01/21/17 04:00 04:45 WBC RBC Hgb Hct MCV RDW Seg Neuts % (Manual) Lymphocytes % (Manual) Seg Neutrophils # Man Lymphocytes # (Manual) POC ABG pH 7.459 H POC ABG pCO2 30.8 L POC ABG pO2 163 H Sodium 154 H Potassium 2.7 L* D Chloride 119.8 H Carbon Dioxide BUN 32 H Glucose POC Glucose Lactic Acid Calcium 7.5 L Phosphorus 1.80 L D Magnesium AST CK-MB (CK-2) Rel Index Troponin T Total Protein Albumin
[2017-01-21] MEDS: NACL 0.45% 1000 ML 1,000 ML IV SCH (12:17)
--- NOTE | 2017-01-21 12:56 | Progress Note ---
Assessment and Plan Altered mental status Severe hypernatremia Leukocytosis Mild rise in troponin levels Abnormal ECG there was sinus tachycardia, with ischemic ST depression in the lateral precordial leads. myocardial perfusion stress test 06/2015 was normal EF 45-50% echo this admission AND/DNR status Conservative cardiac management. Subjective Date of service: 01/21/17 Interval history: Patient remains intubated. Objective Vital Signs Temp Pulse Pulse Resp BP Pulse Ox 01/21/17 12:00 98.6 F 92 H 86 19 166/86 98 01/21/17 11:35 76 146/72 99 01/21/17 11:00 79 16 146/72 99 01/21/17 10:00 92 H 16 166/83 100 01/21/17 09:00 88 16 150/68 99 01/21/17 08:27 89 146/70 97 01/21/17 08:00 98.0 F 87 16 146/70 98 01/21/17 07:00 88 16 146/70 98 01/21/17 06:00 93 H 16 142/66 96 01/21/17 05:00 87 16 127/62 97 01/21/17 04:40 85 124/61 100 01/21/17 04:00 99.2 F 78 76 18 124/61 99 01/21/17 03:00 79 17 115/55 97 01/21/17 02:00 97 H 26 H 109/53 100 01/21/17 01:00 76 18 109/53 100 01/21/17 00:22 78 137/76 100 01/21/17 00:00 98.1 F 98 H 78 20 137/76 100 01/20/17 23:00 77 18 119/58 100 01/20/17 22:00 88 18 127/60 99 01/20/17 21:00 88 18 124/60 100 01/20/17 20:52 87 134/69 100 01/20/17 20:00 98 H 86 20 134/69 100 01/20/17 19:56 99.2 F 01/20/17 19:00 84 18 128/64 100 01/20/17 18:20 86 18 128/72 100 01/20/17 18:10 87 18 137/72 100 01/20/17 18:00 88 18 137/72 99 01/20/17 17:50 87 18 128/72 100 01/20/17 17:40 86 18 128/72 01/20/17 17:30 92 H 18 128/72 01/20/17 17:20 75 18 128/72 01/20/17 17:10 81 18 128/72 01/20/17 17:00 83 18 128/72 01/20/17 16:50 83 18 118/63 01/20/17 16:40 82 18 118/63 01/20/17 16:30 86 18 118/63 01/20/17 16:20 86 18 118/63 01/20/17 16:10 84 18 118/63 01/20/17 16:00 83 86 18 118/63 01/20/17 15:51 98.1 F 01/20/17 15:50 85 18 01/20/17 15:40 87 18 01/20/17 15:36 92 H 18 01/20/17 15:13 88 123/73 01/20/17 14:50 81 18 132/67 01/20/17 14:40 80 18 131/67 01/20/17 14:30 79 17 125/64 01/20/17 14:20 82 18 130/66 01/20/17 14:10 82 18 128/67 01/20/17 14:00 79 18 131/67 01/20/17 13:50 79 18 128/67 01/20/17 13:40 79 18 127/66 01/20/17 13:30 78 18 132/65 01/20/17 13:20 80 18 127/66 01/20/17 13:10 81 18 125/63 01/20/17 13:00 78 18 125/63 100 - Physical Examination General: No Apparent Distress HEENT: Positive: PERRL Cardiac: Positive: Reg Rate and Rhythm Extremities: Absent: edema - Labs and Meds CBC 01/21/17 Range/Units 04:00 WBC 22.4 H (4.5-11.0) K/mm3 RBC 2.85 L (3.65-5.03) M/mm3 Hgb 8.7 L (10.1-14.3) gm/dl Hct 26.4 L D (30.3-42.9) % Plt Count 183 (140-440) K/mm3 Comprehensive Metabolic Panel 01/21/17 Range/Units 04:00 Sodium 154 H (137-145) mmol/L Potassium 2.7 L* D (3.6-5.0) mmol/L Chloride 119.8 H (98-107) mmol/L Carbon Dioxide 22 (22-30) mmol/L BUN 32 H (7-17) mg/dL Creatinine 0.8 (0.7-1.2) mg/dL Glucose 93 (65-100) mg/dL Calcium 7.5 L (8.4-10.2) mg/dL - Imaging and Cardiology EKG: image reviewed
[2017-01-21] MEDS ORDERED: APRESOLINE PO PRN (13:18)
--- NOTE | 2017-01-21 13:41 | Ultrasound Report ---
ULTRASOUND RENAL BILATERAL HISTORY: Acute renal failure. TECHNIQUE: transabdominal ultrasound with color Doppler interrogation. FINDINGS: The right kidney measures 9.8 x 5.0 x 5.4cm. Right renal cortex: 1.4cm. The left kidney measures 10.1 x 4.0 x 4.1cm. Left renal cortex: 1.2cm. The kidneys are normal size and position. There is mild increased renal cortical echotexture bilaterally. A right renal cyst measures up to 1.3 cm. No evidence for nephrolithiasis, mass or hydronephrosis. The bladder is decompressed with a Ramirez catheter. An incidental finding of cholelithiasis is identified. There is also trace ascites. IMPRESSION: Echogenic kidneys consistent with nonspecific renal parenchymal disease. Right renal cyst. Cholelithiasis. Trace ascites.
--- NOTE | 2017-01-21 15:44 | XRay Report ---
Single view chest: Compared to 01/21/17. History: ET tube placement. Findings: The tip of ET tube again is noted in the proximal right mainstem bronchus. No lung changes. Impression: Tip of endotracheal tube is again noted in the proximal right mainstem bronchus.
--- NOTE | 2017-01-21 17:44 | Progress Note ---
Assessment and Plan Assessment and plan: --Acute hypoxic respiratory failure; requiring intubation Continue ventilatory support, nebulizers, IV steroids, IV antibiotics and pulmonary following --Hypokalemia; replace per protocol --Hypophosphatemia; replace per protocol --Hypotension/septic shock; IV hydration, pressors, antibiotics, cultures negative to date --Sepsis; secondary to HCAP, possible aspiration pneumonia, IV antibiotics, follow cultures --Hypernatremia: Significantly improved continue D5W, free water flushes, closely monitor electrolytes, Nephrology following --Leukocytosis; secondary to sepsis, trending down --Elevated cardiac enzymes, rule out non-ST elevation MS Cardiology evaluated , not a candidate for aggressive workup Medical management aspirin, no beta blockers or Navid inhibitors secondary to hypotension, --Severe protein calorie malnutrition; supportive care, nutritional supplements --DVT prophylaxis; SCDs CODE STATUS; DO NOT RESUSCITATE Hospice evaluation is requested, patient's son denies considering inpatient hospice care Patient's condition poor prognosis, treatment plan discussed with the son at the bedside as well as the patient's nurse Critical care time 31 minutes The high probability of a clinically significant, sudden or life threatening deterioration of the [hemodynamic, cardiovascular, respiratory, metabolic, ] system(s) required my full and direct attention, intervention and personal management. The aggregate critical care time was [31] minutes. This time is in addition to time spent performing reported procedures but includes the following : [x] Data Review and interpretation [x] Patient assessment and monitoring of vital signs [x] Documentation [x] Medication orders and management History Interval history: Patient seen and evaluated medical records reviewed Intubated on ventilatory support, pressors Prognosis poor Unresponsive in mild distress Hospitalist Physical - Constitutional Vitals: Temp Pulse Resp BP Pulse Ox 98.4 F 80 20 159/79 99 01/21/17 16:00 01/21/17 16:00 01/21/17 16:00 01/21/17 16:00 01/21/17 16:00 General appearance: Present: mild distress, cachectic, other (unresponsive, on the vent) - EENT Eyes: Present: PERRL, EOM intact - Neck Neck: Present: supple, normal ROM - Respiratory Respiratory effort: labored Respiratory: bilateral: diminished, rhonchi (occasional ), negative: rales, wheezing - Cardiovascular Rhythm: regular Heart Sounds: Present: S1 & S2 - Extremities Extremities: no ischemia, No edema - Abdominal General gastrointestinal: soft, non-tender, non-distended, normal bowel sounds - Integumentary Integumentary: Present: clear, warm - Psychiatric Psychiatric: appropriate mood/affect, cooperative - Neurologic Neurologic: CNII-XII intact, moves all extremities Results - Labs CBC & Chem 7: 01/21/17 04:00 01/21/17 04:00 Labs: Laboratory Last Values WBC 22.4 K/mm3 (4.5-11.0) H 01/21/17 04:00 RBC 2.85 M/mm3 (3.65-5.03) L 01/21/17 04:00 Hgb 8.7 gm/dl (10.1-14.3) L 01/21/17 04:00 Hct 26.4 % (30.3-42.9) L D 01/21/17 04:00 MCV 93 fl (79-97) 01/21/17 04:00 MCH 31 pg (28-32) 01/21/17 04:00 MCHC 33 % (30-34) 01/21/17 04:00 RDW 14.9 % (13.2-15.2) 01/21/17 04:00 Plt Count 183 K/mm3 (140-440) 01/21/17 04:00 Add Manual Diff Complete 01/21/17 04:00 Total Counted 100 01/21/17 04:00 Seg Neutrophils % Hand I Cutter 01/21/17 04:00 Seg Neuts % (Manual) 46.0 % (40.0-70.0) 01/21/17 04:00 Band Neutrophils % 42.0 % 01/21/17 04:00 Lymphocytes % (Manual) 7.0 % (13.4-35.0) L 01/21/17 04:00 Reactive Lymphs % (Man) 0 % 01/21/17 04:00 Monocytes % (Manual) 1.0 % (0.0-7.3) 01/21/17 04:00 Eosinophils % (Manual) 1.0 % (0.0-4.3) 01/21/17 04:00 Basophils % (Manual) 0 % (0.0-1.8) 01/21/17 04:00 Metamyelocytes % 3.0 % 01/21/17 04:00 Myelocytes % 0 % 01/21/17 04:00 Promyelocytes % 0 % 01/21/17 04:00 Blast Cells % 0 % 01/21/17 04:00 Nucleated RBC % Not Reportable 01/21/17 04:00 Seg Neutrophils # Man 10.3 K/mm3 (1.8-7.7) H 01/21/17 04:00 Band Neutrophils # 9.4 K/mm3 01/21/17 04:00 Lymphocytes # (Manual) 1.6 K/mm3 (1.2-5.4) 01/21/17 04:00 Abs React Lymphs (Man) 0.0 K/mm3 01/21/17 04:00 Monocytes # (Manual) 0.2 K/mm3 (0.0-0.8) 01/21/17 04:00 Eosinophils # (Manual) 0.2 K/mm3 (0.0-0.4) 01/21/17 04:00 Basophils # (Manual) 0.0 K/mm3 (0.0-0.1) 01/21/17 04:00 Metamyelocytes # 0.7 K/mm3 01/21/17 04:00 Myelocytes # 0.0 K/mm3 01/21/17 04:00 Promyelocytes # 0.0 K/mm3 01/21/17 04:00 Blast Cells # 0.0 K/mm3 01/21/17 04:00 WBC Morphology Not Reportable 01/21/17 04:00 Hypersegmented Neuts Not Reportable 01/21/17 04:00 Hyposegmented Neuts Not Reportable 01/21/17 04:00 Hypogranular Neuts Not Reportable 01/21/17 04:00 Smudge Cells Not Reportable 01/21/17 04:00 Toxic Granulation Not Reportable 01/21/17 04:00 Toxic Vacuolation Not Reportable 01/21/17 04:00 Dohle Bodies Few 01/21/17 04:00 Pelger-Huet Anomaly Not Reportable 01/21/17 04:00 Yaron Rods Not Reportable 01/21/17 04:00 Platelet Estimate Appears normal 01/21/17 04:00 Clumped Platelets Not Reportable 01/21/17 04:00 Plt Clumps, EDTA Not Reportable 01/21/17 04:00 Large Platelets Not Reportable 01/21/17 04:00 Giant Platelets Not Reportable 01/21/17 04:00 Platelet Satelliting Not Reportable 01/21/17 04:00 Plt Morphology Comment Not Reportable 01/21/17 04:00 RBC Morphology Not Reportable 01/21/17 04:00 Dimorphic RBCs Not Reportable 01/21/17 04:00 Polychromasia Not Reportable 01/21/17 04:00 Hypochromasia Not Reportable 01/21/17 04:00 Poikilocytosis Not Reportable 01/21/17 04:00 Anisocytosis Few 01/21/17 04:00 Microcytosis Not Reportable 01/21/17 04:00 Macrocytosis Not Reportable 01/21/17 04:00 Spherocytes Few 01/21/17 04:00 Pappenheimer Bodies Not Reportable 01/21/17 04:00 Sickle Cells Not Reportable 01/21/17 04:00 Target Cells Not Reportable 01/21/17 04:00 Tear Drop Cells Not Reportable 01/21/17 04:00 Ovalocytes Not Reportable 01/21/17 04:00 Helmet Cells Not Reportable 01/21/17 04:00 Spivey-Elverta Bodies Not Reportable 01/21/17 04:00 Sherburn Rings Not Reportable 01/21/17 04:00 Eveleth Cells Rare 01/21/17 04:00 Bite Cells Not Reportable 01/21/17 04:00 Crenated Cell Not Reportable 01/21/17 04:00 Elliptocytes Not Reportable 01/21/17 04:00 Acanthocytes (Spur) Not Reportable 01/21/17 04:00 Rouleaux Not Reportable 01/21/17 04:00 Hemoglobin C Crystals Not Reportable 01/21/17 04:00 Schistocytes Not Reportable 01/21/17 04:00 Malaria parasites Not Reportable 01/21/17 04:00 Darryn Bodies Not Reportable 01/21/17 04:00 Hem Pathologist Commnt No 01/21/17 04:00 POC ABG pH 7.459 (7.35-7.45) H 01/21/17 04:45 POC ABG pCO2 30.8 (35-45) L 01/21/17 04:45 POC ABG pO2 163 (80-105) H 01/21/17 04:45 POC ABG HCO3 21.8 01/21/17 04:45 POC ABG Total CO2 23 01/21/17 04:45 POC ABG O2 Sat 100 01/21/17 04:45 POC ABG Base Excess -2 01/21/17 04:45 FiO2 55 % 01/21/17 04:45 Sodium 154 mmol/L (137-145) H 01/21/17 04:00 Potassium 2.7 mmol/L (3.6-5.0) L* D 01/21/17 04:00 Chloride 119.8 mmol/L (98-107) H 01/21/17 04:00 Carbon Dioxide 22 mmol/L (22-30) 01/21/17 04:00 Anion Gap 15 mmol/L 01/21/17 04:00 BUN 32 mg/dL (7-17) H 01/21/17 04:00 Creatinine 0.8 mg/dL (0.7-1.2) 01/21/17 04:00 Estimated GFR > 60 ml/min 01/21/17 04:00 BUN/Creatinine Ratio 40.00 % 01/21/17 04:00 Glucose 93 mg/dL (65-100) 01/21/17 04:00 POC Glucose 115 (70-105) H 01/20/17 10:31 Lactic Acid 4.00 mmol/L (0.7-2.0) H* 01/19/17 06:32 Calcium 7.5 mg/dL (8.4-10.2) L 01/21/17 04:00 Phosphorus 1.80 mg/dL (2.5-4.5) L D 01/21/17 04:00 Magnesium 2.40 mg/dL (1.7-2.3) H 01/20/17 05:13 Total Bilirubin 1.20 mg/dL (0.1-1.2) 01/20/17 05:13 AST 59 units/L (5-40) H 01/20/17 05:13 ALT 14 units/L (7-56) 01/20/17 05:13 Alkaline Phosphatase 76 units/L (35-129) 01/20/17 05:13 Total Creatine Kinase 42 units/L (30-135) 01/19/17 09:55 CK-MB (CK-2) 3.1 ng/mL (0.0-4.0) 01/19/17 09:55 CK-MB (CK-2) Rel Index 7.3 (0-4) H 01/19/17 09:55 Troponin T 0.163 ng/mL (0.00-0.029) H* D 01/19/17 09:55 Total Protein 5.8 g/dL (6.3-8.2) L 01/20/17 05:13 Albumin 1.7 g/dL (3.9-5) L 01/20/17 05:13 Albumin/Globulin Ratio 0.4 % 01/20/17 05:13 Triglycerides 173 mg/dL (2-149) H 01/18/17 23:40 Cholesterol 201 mg/dL (50-199) H 01/18/17 23:40 LDL Cholesterol Direct 121 mg/dL (50-130) 01/18/17 23:40 HDL Cholesterol 46 mg/dL (40-59) 01/18/17 23:40 Cholesterol/HDL Ratio 4.36 % 01/18/17 23:40 Urine Color Yellow (Yellow) 01/19/17 04:40 Urine Turbidity Clear (Clear) 01/19/17 04:40 Urine pH 6.0 (5.0-7.0) 01/19/17 04:40 Ur Specific Rembrandt 1.017 (1.003-1.030) 01/19/17 04:40 Urine Protein <15 mg/dl mg/dL (Negative) 01/19/17 04:40 Urine Glucose (UA) Neg mg/dL (Negative) 01/19/17 04:40 Urine Ketones Neg mg/dL (Negative) 01/19/17 04:40 Urine Blood Neg (Negative) 01/19/17 04:40 Urine Nitrite Neg (Negative) 01/19/17 04:40 Urine Bilirubin Neg (Negative) 01/19/17 04:40 Urine Urobilinogen < 2.0 mg/dL (<2.0) 01/19/17 04:40 Ur Leukocyte Esterase Neg (Negative) 01/19/17 04:40 Urine WBC (Auto) 6.0 /HPF (0.0-6.0) 01/19/17 04:40 Urine RBC (Auto) 3.0 /HPF (0.0-6.0) 01/19/17 04:40 U Epithel Cells (Auto) 2.0 /HPF (0-13.0) 01/19/17 04:40 Hyaline Casts 2 /LPF 01/19/17 04:40 Urine Mucus 1+ /HPF 01/19/17 04:40 Blood Type B POSITIVE 01/19/17 00:45 Antibody Screen Negative 01/19/17 00:45
[2017-01-21] MEDS ORDERED: APRESOLINE IV PRN (18:10)
[2017-01-21] MEDS ORDERED: TYLENOL PO PRN (18:18)
[2017-01-21] MEDS: APRESOLINE IV PRN (18:34)
[2017-01-21] MEDS: VANCOMYCIN 750 MG in NACL 0.9% 250ML 250 ML IV SCH (23:41)
[2017-01-22] MEDS: NACL 0.45% 1000 ML 1,000 ML IV SCH (01:58)
[2017-01-22] MEDS: APRESOLINE IV PRN (01:59)
--- NOTE | 2017-01-22 04:02 | XRay Report ---
FINAL REPORT EXAM: XR ABDOMEN 1V AP HISTORY: OG tube placement TECHNIQUE: A portable view of the abdomen was submitted. FINDINGS: There has been placement of a nasogastric tube with the tip in the expected position of the body of the stomach. The bowel gas pattern is nondiagnostic. Free air is not seen. Lung bases reveal patchy infiltrates bilaterally. In the pelvis there is a right-sided femoral catheter with the tip at the L4 level. The skeletal structures reveal disc degeneration in the lumbar spine. IMPRESSION: Tip of the NG tube in the expected position of the body of the stomach.
[2017-01-22 05:36] LABS: Hematocrit 28.8 % (30.3-42.9); Hemoglobin 9.4 gm/dl (10.1-14.3); Mean Corpuscular HGB Conc 33 % (30-34); Mean Corpuscular Hemoglobin 30 pg (28-32); Mean Corpuscular Volume 91 fl (79-97); Platelet Count 185 K/mm3 (140-440); Red Blood Count 3.17 M/mm3 (3.65-5.03); Red Cell Distribution Width 14.6 % (13.2-15.2)
[2017-01-22 05:58] LABS: White Blood Count 22.7 K/mm3 (4.5-11.0)
[2017-01-22 06:00] LABS: Anion Gap 15 mmol/L; Blood Urea Nitrogen 20 mg/dL (7-17); Calcium 7.3 mg/dL (8.4-10.2); Carbon Dioxide 22 mmol/L (22-30); Chloride 115.5 mmol/L (98-107); Glucose 102 mg/dL (65-100); Sodium 150 mmol/L (137-145)
[2017-01-22 06:03] LABS: ISTAT Base Excess -2; ISTAT HCO3 21.1; ISTAT PCO2 26.3 (35-45); ISTAT PH 7.513 (7.35-7.45); ISTAT PO2 105 (80-105); ISTAT SO2 99; ISTAT TCO2 22
[2017-01-22 06:04] LABS: Potassium 2.6 mmol/L (3.6-5.0)
[2017-01-22 06:26] LABS: Anisocytosis Few; Basophils % (Manual) 0 % (0.0-1.8); Blastocytes % (Manual) 0 %; Eosinophils % (Manual) 0 % (0.0-4.3)
[2017-01-22] MEDS: ZOSYN/NS 2.25 GM/50ML 2.25 GM/50 ML BAG IV SCH ×2 (06:26→13:36)
[2017-01-22 06:27] LABS: Diff Status Complete; Dohle Bodies Few; Spherocytes Rare
--- NOTE | 2017-01-22 09:01 | Progress Note ---
Assessment and Plan Altered mental status Severe hypernatremia Leukocytosis Mild rise in troponin levels Abnormal ECG there was sinus tachycardia, with ischemic ST depression in the lateral precordial leads. myocardial perfusion stress test 06/2015 was normal EF 45-50% echo this admission AND/DNR status Continue ASA. Consider further work up when acute issues resolved. Conservative cardiac management. Subjective Date of service: 01/22/17 Interval history: No acute events. Resting comfortably. Objective Vital Signs Temp Pulse Pulse Resp BP Pulse Ox 01/22/17 08:00 83 94 H 26 H 160/76 99 01/22/17 07:40 77 136/67 97 01/22/17 07:00 66 16 136/67 98 01/22/17 06:00 86 29 H 147/87 98 01/22/17 05:21 88 147/87 98 01/22/17 05:00 80 27 H 147/87 98 01/22/17 04:00 75 75 16 143/71 98 01/22/17 03:09 97.4 F L 01/22/17 03:00 103 H 30 H 198/103 97 01/22/17 02:00 85 26 H 198/103 97 01/22/17 01:59 85 176/86 01/22/17 01:00 87 26 H 165/78 98 01/22/17 00:00 79 17 165/78 98 01/21/17 23:55 86 98 01/21/17 23:48 74 22 131/70 98 01/21/17 23:40 97.6 F 01/21/17 23:13 82 131/70 98 01/21/17 23:00 84 19 131/70 97 01/21/17 22:00 101 H 18 122/68 97 01/21/17 21:00 120 H 27 H 153/75 97 01/21/17 20:43 132 H 166/85 95 01/21/17 20:35 118 H 28 H 98 01/21/17 20:00 100.3 F H 121 H 26 H 166/85 95 01/21/17 19:00 114 H 28 H 165/78 96 01/21/17 18:34 82 192/93 01/21/17 18:00 101 H 22 192/91 98 01/21/17 17:00 85 18 181/86 99 01/21/17 16:00 98.4 F 80 16 159/79 99 01/21/17 15:20 91 H 180/90 100 01/21/17 15:00 99 H 19 180/90 98 01/21/17 14:06 99 H 159/83 97 01/21/17 14:00 92 H 21 163/87 98 01/21/17 13:00 91 H 20 169/83 97 01/21/17 12:00 98.6 F 92 H 86 19 166/86 98 01/21/17 11:35 76 146/72 99 01/21/17 11:00 79 16 146/72 99 01/21/17 10:00 92 H 16 166/83 100 01/21/17 09:00 88 16 150/68 99 - Physical Examination General: No Apparent Distress HEENT: Positive: PERRL Neck: Positive: neck supple, trachea midline Neuro: Positive: Other (unresponsive on the vent) Abdomen: Positive: Soft Skin: Positive: Clear Extremities: Absent: edema - Labs and Meds CBC 01/22/17 Range/Units 05:05 WBC 22.7 H (4.5-11.0) K/mm3 RBC 3.17 L (3.65-5.03) M/mm3 Hgb 9.4 L (10.1-14.3) gm/dl Hct 28.8 L (30.3-42.9) % Plt Count 185 (140-440) K/mm3 Comprehensive Metabolic Panel 01/22/17 Range/Units 05:05 Sodium 150 H (137-145) mmol/L Potassium 2.6 L* (3.6-5.0) mmol/L Chloride 115.5 H (98-107) mmol/L Carbon Dioxide 22 (22-30) mmol/L BUN 20 H (7-17) mg/dL Creatinine 0.4 L (0.7-1.2) mg/dL Glucose 102 H (65-100) mg/dL Calcium 7.3 L (8.4-10.2) mg/dL - Imaging and Cardiology EKG: image reviewed
--- NOTE | 2017-01-22 09:47 | Discharge Summary ---
Providers - Providers Date of Admission: 01/19/17 02:25 Date of discharge: 01/22/17 Attending physician: UZMA SANDOVAL 01/19/17 12:13 Consult to Physician [CONS] Routine Consulting Provider: JEAN CLAUDE GARCIA Reason For Exam: severe hypernatremia Place consult to:: NEPHROLOGY Notified:: Y Was contact made?: Yes If yes, spoke with:: OFFICE UZMA Time called:: 13:25 01/19/17 13:56 Consult to Physician [CONS] Routine Consulting Provider: ARCENIO NAVARRETE Reason For Exam: elevated cardiac enzymes Place consult to:: CARDIOLOGY Notified:: N Time called:: 14:10 01/21/17 08:29 Consult to Dietitian/Nutrition [CONS] Routine Physician Instructions: manage Reason For Exam: for feeding tube as per protocol Reason for Consult: Write/Manage Tube Feeding 01/21/17 19:02 Consult to Wound/ET Nurse [CONS] Routine Reason For Exam: wound eval sacrum and both heels Primary care physician: PILL COATER Hospitalization Reason for admission: worsening shortness of breath/acute respiratory failure Condition: Poor Pertinent studies: Multiple chest x-rays, echocardiogram, renal ultrasound Procedures: Intubation and mechanical ventilation Hospital course: 81-year-old female patient with a significant history of hypertension GERD depression was admitted to emergency room with acute respiratory failure requiring intubation, patient has HCAP with septic shock and severe hypernatremia and elevated cardiac enzymes and very poor prognosis After detailed discussion son has opted DO NOT RESUSCITATE status was requested to continue mechanical ventilation support and on the upper treatment Patient was admitted to ICU, patient's condition continued to deteriorate with very minimal improvement Today patient is acute respiratory distress, besides dependent Hospice has evaluated the patient, and son wanted inpatient hospice placement At the time of discharge and transfer patient is critically ill with guarded prognosis family overt Patient is DO NOT RESUSCITATE and comfort care status Discharge diagnosis; --Acute hypoxic respiratory failure; requiring intubation --septic shock; pressor dependent --Sepsis; secondary to HCAP, --possible aspiration pneumonia, --Hypokalemia; replace per protocol --Hypophosphatemia; replace per protocol --Hypernatremia: Significantly improved --Leukocytosis; secondary to sepsis, trending down --Elevated cardiac enzymes, not a candidate for aggressive workup --Severe protein calorie malnutrition; Disposition: DC-[id number]OSPICE ([facility]) Time spent for discharge: 32 min Core Measure Documentation - Palliative Care Palliative Care/ Comfort Measures: Hospice Care - Core Measures Any of the following diagnoses?: history only Exam - Constitutional Vitals: Temp Pulse Resp BP Pulse Ox 97.4 F L 94 H 18 160/76 99 01/22/17 03:09 01/22/17 08:00 01/22/17 08:00 01/22/17 08:00 01/22/17 08:00 General appearance: Present: severe distress, cachectic, disheveled - EENT Eyes: Present: PERRL, EOM intact - Neck Neck: Present: supple, normal ROM - Respiratory Respiratory effort: labored Respiratory: bilateral: diminished, rhonchi, negative: rales, wheezing - Cardiovascular Rhythm: regular Heart Sounds: Present: S1 & S2 - Extremities Extremities: no ischemia, No edema - Abdominal General gastrointestinal: Present: soft, non-tender, non-distended, normal bowel sounds - Integumentary Integumentary: Present: clear, warm - Musculoskeletal Musculoskeletal: generalized weakness - Psychiatric Psychiatric: other (intubated unresponsive) - Neurologic Neurologic: other (intubated Unresponsive) Plan Activity: advance as tolerated, fall precautions Diet: advance as tolerated, other (diet as tolerated) Additional Instructions: Transfer the patient to inpatient hospice under the care of hospice medical planner Follow up with: KATINA JEFFERSON MD [Primary Care Provider] - 3-5 Days
[2017-01-22] MEDS ORDERED: K-DUR PO SCH (10:00)
[2017-01-22] MEDS: LOVENOX SUB-Q SCH (10:03)
[2017-01-22] MEDS: K-DUR PO SCH ×2 (10:03→13:36)
[2017-01-22] MEDS: PEPCID IV SCH (10:04)
[2017-01-22] MEDS: ASPIRIN PR SCH (10:04)
[2017-01-22] MEDS ORDERED: MORPHINE IV ONE (10:05)
--- NOTE | 2017-01-22 10:54 | XRay Report ---
AP CHEST :01/22/17 CLINICAL: Intubated.Follow up respiratory failure. COMPARISON:The previous day. FINDINGS: The endotracheal tube has been pulled back tip is just above the maycol. A nasogastric tube is satisfactory. Slightly increased bilateral reticular interstitial opacities with indistinctness of the pulmonary vessels. The heart is normal size. Continued opacification of the left lung base with silhouetting of the left hemidiaphragm. No pneumothorax. IMPRESSION: Increased bilateral reticular interstitial opacities, likely pulmonary edema.
--- NOTE | 2017-01-22 14:51 | Progress Note ---
Assessment and Plan 81 y/o female with mulitiple comorbidities admitted with acute respiratory failure and failure to thrive and NSTEMi 1. Agree with hospice 2. continue supportive care until transition from this hospital CCT 31 minutes Subjective Date of service: 01/22/17 Interval history: No acute events. patient being discharge to hospice today. Objective Vital Signs - 12hr 01/22/17 01/22/17 01/22/17 03:00 03:09 04:00 Temperature 97.4 F L Pulse Rate 103 H 75 Pulse Rate [ 75 From Monitor] Respiratory 30 H 16 Rate Blood Pressure 198/103 143/71 O2 Sat by Pulse 97 98 Oximetry 01/22/17 01/22/17 01/22/17 05:00 05:21 06:00 Temperature Pulse Rate 80 88 86 Pulse Rate [ From Monitor] Respiratory 27 H 29 H Rate Blood Pressure 147/87 147/87 147/87 O2 Sat by Pulse 98 98 98 Oximetry 01/22/17 01/22/17 01/22/17 07:00 07:40 08:00 Temperature 97.8 F Pulse Rate 66 77 83 Pulse Rate [ 94 H From Monitor] Respiratory 16 26 H Rate Blood Pressure 136/67 136/67 160/76 O2 Sat by Pulse 98 97 99 Oximetry 01/22/17 01/22/17 01/22/17 09:00 10:00 11:00 Temperature Pulse Rate 66 75 85 Pulse Rate [ From Monitor] Respiratory 25 H 19 17 Rate Blood Pressure 152/70 166/68 161/71 O2 Sat by Pulse 98 98 98 Oximetry 01/22/17 01/22/17 12:00 13:00 Temperature 97.9 F Pulse Rate 77 84 Pulse Rate [ 76 From Monitor] Respiratory 16 17 Rate Blood Pressure 141/73 151/87 O2 Sat by Pulse 99 99 Oximetry Constitutional: no acute distress, comatose Eyes: non-icteric ENT: other (orally intubated and critically ill on vent) Effort: mildly labored Ascultation: Bilateral: rales Percussion: Bilateral: not dull Cardiovascular: regular rate and rhythm CBC and BMP: 01/22/17 05:05 01/22/17 05:05 ABG, PT/INR, D-dimer: ABG POC ABG pH 7.513 (7.35-7.45) H 01/22/17 05:53 POC ABG pCO2 26.3 (35-45) L 01/22/17 05:53 POC ABG pO2 105 (80-105) 01/22/17 05:53 POC ABG HCO3 21.1 01/22/17 05:53 POC ABG Total CO2 22 01/22/17 05:53 POC ABG O2 Sat 99 01/22/17 05:53 Abnormal lab findings: Abnormal Labs 01/19/17 01/19/17 01/19/17 04:48 06:32 06:32 WBC RBC Hgb Hct MCV RDW Seg Neuts % (Manual) Lymphocytes % (Manual) Nucleated RBC % Seg Neutrophils # Man Lymphocytes # (Manual) POC ABG pH POC ABG pCO2 POC ABG pO2 57 L Sodium Potassium Chloride Carbon Dioxide BUN Creatinine Glucose POC Glucose Lactic Acid Calcium Phosphorus Magnesium AST CK-MB (CK-2) Rel Index 8.2 H Troponin T 0.126 H* D Total Protein Albumin 01/19/17 01/19/17 01/19/17 06:32 06:32 07:41 WBC RBC Hgb Hct MCV RDW Seg Neuts % (Manual) Lymphocytes % (Manual) Nucleated RBC % Seg Neutrophils # Man Lymphocytes # (Manual) POC ABG pH POC ABG pCO2 POC ABG pO2 Sodium 156 H 159 H Potassium 3.5 L D 3.5 L Chloride 116.6 H 119.5 H Carbon Dioxide BUN 34 H 33 H Creatinine Glucose 124 H 118 H POC Glucose Lactic Acid 4.00 H* Calcium 7.9 L 7.8 L Phosphorus Magnesium AST CK-MB (CK-2) Rel Index Troponin T Total Protein Albumin 01/19/17 01/19/17 01/19/17 09:55 09:55 11:30 WBC RBC Hgb Hct MCV RDW Seg Neuts % (Manual) Lymphocytes % (Manual) Nucleated RBC % Seg Neutrophils # Man Lymphocytes # (Manual) POC ABG pH POC ABG pCO2 POC ABG pO2 Sodium 161 H* Potassium 3.5 L Chloride 120.8 H Carbon Dioxide BUN 36 H Creatinine Glucose 119 H POC Glucose Lactic Acid Calcium 7.6 L Phosphorus Magnesium AST CK-MB (CK-2) Rel Index 7.3 H Troponin T 0.163 H* D Total Protein Albumin 01/19/17 01/20/17 01/20/17 12:05 05:13 05:13 WBC 21.9 H RBC 3.41 L Hgb Hct MCV 99 H RDW 16.2 H Seg Neuts % (Manual) 34.0 L Lymphocytes % (Manual) 3.0 L Nucleated RBC % Seg Neutrophils # Man Lymphocytes # (Manual) 0.7 L POC ABG pH POC ABG pCO2 POC ABG pO2 Sodium 158 H 151 H Potassium 3.4 L Chloride 119.4 H 116.5 H Carbon Dioxide 17 L D BUN 34 H 43 H Creatinine Glucose 127 H 112 H POC Glucose Lactic Acid Calcium 7.7 L 7.8 L Phosphorus 2.40 L Magnesium 2.40 H AST 59 H CK-MB (CK-2) Rel Index Troponin T Total Protein 5.8 L Albumin 1.7 L 01/20/17 01/20/17 01/21/17 06:00 10:31 04:00 WBC 22.4 H RBC 2.85 L Hgb 8.7 L Hct 26.4 L D MCV RDW Seg Neuts % (Manual) Lymphocytes % (Manual) 7.0 L Nucleated RBC % Seg Neutrophils # Man 10.3 H Lymphocytes # (Manual) POC ABG pH POC ABG pCO2 POC ABG pO2 132 H Sodium Potassium Chloride Carbon Dioxide BUN Creatinine Glucose POC Glucose 115 H Lactic Acid Calcium Phosphorus Magnesium AST CK-MB (CK-2) Rel Index Troponin T Total Protein Albumin 01/21/17 01/21/17 01/22/17 04:00 04:45 05:05 WBC 22.7 H RBC 3.17 L Hgb 9.4 L Hct 28.8 L MCV RDW Seg Neuts % (Manual) Lymphocytes % (Manual) 5.0 L Nucleated RBC % 3.0 H Seg Neutrophils # Man 10.7 H Lymphocytes # (Manual) 1.1 L POC ABG pH 7.459 H POC ABG pCO2 30.8 L POC ABG pO2 163 H Sodium 154 H Potassium 2.7 L* D Chloride 119.8 H Carbon Dioxide BUN 32 H Creatinine Glucose POC Glucose Lactic Acid Calcium 7.5 L Phosphorus 1.80 L D Magnesium AST CK-MB (CK-2) Rel Index Troponin T Total Protein Albumin 01/22/17 01/22/17 05:05 05:53 WBC RBC Hgb Hct MCV RDW Seg Neuts % (Manual) Lymphocytes % (Manual) Nucleated RBC % Seg Neutrophils # Man Lymphocytes # (Manual) POC ABG pH 7.513 H POC ABG pCO2 26.3 L POC ABG pO2 Sodium 150 H Potassium 2.6 L* Chloride 115.5 H Carbon Dioxide BUN 20 H Creatinine 0.4 L Glucose 102 H POC Glucose Lactic Acid Calcium 7.3 L Phosphorus 2.40 L D Magnesium AST CK-MB (CK-2) Rel Index Troponin T Total Protein Albumin
[2017-01-22 15:44] VITALS: BP 160/81
== END 2017-01-22 16:00 | disposition hospice, inpatient (51) | DRG 871 ==
LOC: ED 21:49 → CC1 01-19 02:25
PROVIDERS: ADMIT Internal Medicine; ATTEND Internal Medicine
PROC: 5A1945Z Respiratory Ventilation, 24-96 Consecutive Hours (ICD-10-PCS; principal; 2017-01-19)
PROC: 4A033R1 Measurement of Arterial Saturation, Peripheral, Percutaneous Approach (ICD-10-PCS; 2017-01-19)
PROC: 0BH17EZ Insertion of Endotracheal Airway into Trachea, Via Natural or Artificial Opening (ICD-10-PCS; 2017-01-19)
PROC: 02HV33Z Insertion of Infusion Device into Superior Vena Cava, Percutaneous Approach (ICD-10-PCS; 2017-01-19)
PROC: B5181ZA Fluoroscopy of Superior Vena Cava using Low Osmolar Contrast, Guidance (ICD-10-PCS; 2017-01-19)
DX: A41.9 Sepsis, unspecified organism (principal); J96.90 Respiratory failure, unspecified, unspecified whether with hypoxia or hypercapnia; J96.00 Acute respiratory failure, unspecified whether with hypoxia or hypercapnia; R65.21 Severe sepsis with septic shock; I21.4 Non-ST elevation (NSTEMI) myocardial infarction; E43 Unspecified severe protein-calorie malnutrition; J69.0 Pneumonitis due to inhalation of food and vomit; E87.6 Hypokalemia; K21.9 Gastro-esophageal reflux disease without esophagitis; I10 Essential (primary) hypertension; F32.9 Major depressive disorder, single episode, unspecified; G20 Parkinson's disease; Y95 Nosocomial condition; E86.0 Dehydration; R62.7 Adult failure to thrive; E87.0 Hyperosmolality and hypernatremia; N17.9 Acute kidney failure, unspecified; D64.9 Anemia, unspecified; Z66 Do not resuscitate; E83.39 Other disorders of phosphorus metabolism; Z68.21 Body mass index [BMI] 21.0-21.9, adult; Z79.899 Other long term (current) drug therapy; Z51.5 Encounter for palliative care
CPT/HCPCS: 36415; 36600; 71010; 74000; 76770; 80048; 80053; 80061; 81001; 82140; 82550; 82553; 82803; 82962; 83735; 84100; 84484; 85007; 85025; 86850; 86900; 86901; 87040; 87070; 87086; 87205; 93005; 93010; 93306; 94002; 94003; J0153; J0360; J1650; J2060; J2270; J2543; J3010; J3370; J3480; J7030; J7040; J7042; J7050; J7070